=== PATIENT | female | born 1995 | race Caucasian/White ===

== ENCOUNTER 2018-05-16 11:05 | Emergency (ER) | payer OTHER ==
[~2018-05-16] VITALS: Ht 160 cm; Wt 95.2 kg
[~2018-05-16 11:05] MED LIST: AMOXICILLIN875 MG PO; HYDROCODON-ACE1 EA10 PO; NORCO 5-325 TA1 EACH PO
== END 2018-05-16 12:30 | disposition left against medical advice (07) ==
LOC: ED 11:05
DX: Z53.21 Procedure and treatment not carried out due to patient leaving prior to being seen by health care provider (principal)

== ENCOUNTER 2018-09-26 21:42 | Emergency (ER) | payer OTHER ==
[~2018-09-26] VITALS: Ht 160 cm; Wt 102.7 kg
[2018-09-26] MEDS ORDERED: [UNRECOGNIZED DRUG - REMARK] (21:57)
[2018-09-26] MEDS ORDERED: CEPHALEXIN500 MG PO (22:04)
[2018-09-26] MEDS ORDERED: BACTRIM DS TAB1 EACH PO (22:04)
== END 2018-09-26 22:15 | disposition home or self-care (01) ==
LOC: ED 21:42
DX: L03.115 Cellulitis of right lower limb (principal)
CPT/HCPCS: 99283

== ENCOUNTER 2018-09-30 05:36 | Emergency (ER) | payer OTHER ==
[~2018-09-30] VITALS: Ht 160 cm; Wt 102.7 kg
[~2018-09-30 05:36] MED LIST changes: +BACTRIM DS TAB1 EACH PO; +CEPHALEXIN500 MG PO; +[UNRECOGNIZED DRUG - REMARK]
--- OUTSIDE RECORDS SUMMARY | 2018-09-30 05:40 | XMS ---
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 05/16/2018 11:05 - Other Details: PATIENT LWBS- IRIS CREATED CRITERIA MET - [facility] - 2 Visits in 30 Days CARE PROVIDERS There are no care providers on record at this time. Amena has no Care Guidelines for this patient. E.DDomenic VISIT COUNT (12 MO.) 3 [facility] TOTAL 3 NOTE: Visits indicate total known visits. ED/C VISIT TRACKING (12 MO.) 09/30/2018 05:37 [facility] [place] TYPE: Emergency COMPLAINT: - BUG BITE 09/26/2018 21:42 [facility] [place] TYPE: Emergency COMPLAINT: - SPIDER BITE DIAGNOSES: - Cellulitis of right lower limb 05/16/2018 11:05 [facility] [place] TYPE: Emergency COMPLAINT: - R EAR BLEEDING DIAGNOSES: - Procedure and treatment not carried out due to patient leaving prior to being seen by health care provider INPATIENT VISIT TRACKING (12 MO.) No inpatient visits to display in this time frame [id number]
[2018-09-30] MEDS ORDERED: DOXYCYCLINE HY100 MG PO (06:04)
== END 2018-09-30 06:11 | disposition home or self-care (01) ==
LOC: ED 05:36
DX: L03.115 Cellulitis of right lower limb (principal); F17.200 Nicotine dependence, unspecified, uncomplicated
CPT/HCPCS: 99283

== ENCOUNTER 2019-01-28 17:18 | Emergency (ER) | payer OTHER ==
[~2019-01-28] VITALS: Ht 160 cm; Wt 102.2 kg
--- OUTSIDE RECORDS SUMMARY | ~2019-01-28 | XMS | Encounter Summary ---
Demographics + + + | Address | [address] | | | [place] [address] | + + + | Home Phone | | + + + | Preferred Language | Unknown | + + + | Marital Status | Single | + + + | Lutheran Affiliation | PAG | + + + | Race | White | + + + | Ethnic Group | Not or | + + + Author + + + | Author | [facility] | + + + | Organization | [facility] | + + + | Address | Unknown | + + + | Phone | Unavailable | + + + Support + + +---------+ + | Name | Relationship | Address | Phone | + + +---------+ + | Yumiko Peralta | ECON | Unknown | | + + +---------+ + Care Team Providers + +------+ + | Care Pot Puncher Name | Role | Phone | + +------+ + | Delilah Lange NP | PCP | | + +------+ + Encounter Details +--------+ + + + + | Date | Type | Department | Care Team | Description | +--------+ + + + + | 12/12/ | Documentati | Otolaryngology | Malik Daigle MD | | | 2019 | on | Otology Services at | [address] | | | | | PPV [address] | [place], | | | | | [address] | [place] [address] | | | | | Mailcode: PV01 | [phone] | | | | | [facility] | | | | | | [place], [place] | | | | | | [address] | | | | | | [phone] | | | +--------+ + + + + Social History + +-------+ +--------+------+ | Tobacco Use | Types | Packs/Day | Years | Date | | | | | Used | | + +-------+ +--------+------+ | Never Assessed | | | | | + +-------+ +--------+------+ + + + | Sex Assigned at | Date Recorded | | | | + + + | Not on file | | + + + + + + + | Job Start Date | Occupation | Industry | + + + + | Not on file | Not on file | Not on file | + + + + + + + + | Travel History | Travel Start | Travel End | + + + + + + | No recent travel history available. | + + documented as of this encounter Plan of Treatment +--------+---------+ + + + | Date | Type | Specialty | Care Team | Description | +--------+---------+ + + + | 02/20/ | Office | Otolaryngology | Malik Daigle MD | | | 2019 | Visit | | [address] | | | | | | [place], | | | | | | [place] [address] | | | | | | [phone] | | | | | | | | +--------+---------+ + + + documented as of this encounter Visit Diagnoses Not on filedocumented in this encounter"
--- OUTSIDE RECORDS SUMMARY | ~2019-01-28 | XMS | Encounter Summary ---
Demographics + + + | Address | [address] | | | [place] [address] | + + + | Home Phone | | + + + | Preferred Language | Unknown | + + + | Marital Status | Single | + + + | Protestant Affiliation | PAG | + + + | Race | White | + + + | Ethnic Group | Not or | + + + Author + + + | Author | [facility] | + + + | Organization | [facility] | + + + | Address | Unknown | + + + | Phone | Unavailable | + + + Support + + +---------+ + | Name | Relationship | Address | Phone | + + +---------+ + | Yumiko Peralta | ECON | Unknown | | + + +---------+ + Care Team Providers + +------+ + | Care Honest John Rocket Crew Member Name | Role | Phone | + +------+ + | Delilah Lange NP | PCP | | + +------+ + Reason for Visit + + + | Reason | Comments | + + + | Refill Request | | + + + Encounter Details +--------+--------+ + + + | Date | Type | Department | Care Team | Description | +--------+--------+ + + + | 01/24/ | Refill | Otolaryngology | Cheryl Rivera, | Refill Request | | 2019 | | General Services at | MD [address] | | | | | PPV [address] | [address] | | | | | [facility] [address] | [place], [place] | | | | | Mailcode: PV01 | [address] | | | | | [facility] | [phone] | | | | | [place], [place] | | | | | | [address] | | | | | | [phone] | | | +--------+--------+ + + + Social History + + + +--------+------+ | Tobacco Use | Types | Packs/Day | Years | Date | | | | | Used | | + + + +--------+------+ | Current Every Day | Cigarettes | 0.5 | 5 | | | Smoker | | | | | + + + +--------+------+ + +---+---+---+ | Smokeless Tobacco: | | | | | Never Used | | | | + +---+---+---+ + + +---------+ + | Alcohol Use | Drinks/Week | oz/Week | Comments | + + +---------+ + | Not Currently | 2 Cans of beer | 2.0 | 1-2 a month | + + +---------+ + + + + | Sex Assigned at [...] | | | | | [place], | | | | | | [place] [address] | | | | | | [phone] | | | | | | | | +--------+---------+ + + + documented as of this encounter Visit Diagnoses Not on filedocumented in this encounter"
--- OUTSIDE RECORDS SUMMARY | ~2019-01-28 | XMS | Encounter Summary ---
Demographics + + + | Address | [address] | | | [place] [address] | + + + | Home Phone | | + + + | Preferred Language | Unknown | + + + | Marital Status | Single | + + + | Islam Affiliation | PAG | + + + | Race | White | + + + | Ethnic Group | Not or | + + + Author + + + | Author | [facility] | + + + | Organization | [facility] | + + + | Address | Unknown | + + + | Phone | Unavailable | + + + Support + + +---------+ + | Name | Relationship | Address | Phone | + + +---------+ + | Yumiko Peralta | ECON | Unknown | | + + +---------+ + Care Team Providers + +------+ + | Care Design Drafter Name | Role | Phone | + +------+ + | Delilah Lange NP | PCP | | + +------+ + Reason for Visit + + + | Reason | Comments | + + + | Pain | | + + + | Prescription | | + + + Encounter Details +--------+ + + + + | Date | Type | Department | Care Team | Description | +--------+ + + + + | 01/24/ | Telephone | Otolaryngology | Malik Daigle MD | Pain; Prescription | | 2019 | | Otology Services at | [address] | | | | | [facility] [address] [facility] | [place], | | | | | [facility] | [place] [address] | | | | | Mailcode: PV01 | [phone] | | | | | [facility] | | | | | | [place], [place] | | | | | | [address] | | | | | | [phone] | | | +--------+ + + + + Social History + + [...] | | | | | [place], | | | | | | [place] [address] | | | | | | [phone] | | | | | | | | +--------+---------+ + + + documented as of this encounter Visit Diagnoses Not on filedocumented in this encounter"
--- OUTSIDE RECORDS SUMMARY | ~2019-01-28 | XMS | Encounter Summary ---
Demographics + + + | Address | [address] | | | [place] [address] | + + + | Home Phone | | + + + | Preferred Language | Unknown | + + + | Marital Status | Single | + + + | Buddhist Affiliation | PAG | + + + | Race | White | + + + | Ethnic Group | Not or | + + + Author + + + | Author | [facility] | + + + | Organization | [facility] | + + + | Address | Unknown | + + + | Phone | Unavailable | + + + Support + + +---------+ + | Name | Relationship | Address | Phone | + + +---------+ + | Yumiko Peralta | ECON | Unknown | | + + +---------+ + Care Team Providers + +------+ + | Care Loan Servicing Specialist Name | Role | Phone | + +------+ + | Delilah Lange NP | PCP | | + +------+ + Reason for Visit + + + | Reason | Comments | + + + | Pre-op evaluation | | + + + Encounter Details +--------+ + + + + | Date | Type | Department | Care Team | Description | +--------+ + + + + | 01/15/ | Telephone-S | Preoperative | | Pre-op evaluation | | 2019 | margie | [facility] | | | | | | [facility] | | | | | | [address] | | | | | | Mail Code: OC8PM | | | | | | [facility] | | | | | | and Healing, | | | | | | [address] | | | | | | [place], [place] | | | | | | [address] | | | | | | [phone] | | | +--------+ + + + + Anesthesia Record + + + + + | Procedure Name | Responsible | Anesthesia Start | Anesthesia Stop Time | | | Anesthesiologist | Time | | + + + + + | LEFT EAR CARTILAGE | Solomon Walker MD | 01/22/19 8415 | 01/22/19 2456 | | GRAFT, | | | | | TYMPANOPLASTY, | | | | | MASTOID ANTROTOMY | | | | | WITH OSSICULAR CHAIN | | | | | RECONSTRUCTION, | | | | | NERVE MONITORING. | | | | | (Left Ear) | | | | + + + + + +----+---+ + + | Da | T | Event | Comment | | te | i | | | | | m | | | | | e | | | +----+---+ + + | 10 | 1 | | | | /2 | 3 | | | | 2/ | 5 | | | | 20 | 1 | | | | 19 | | | | +----+---+ + + | | 1 | Pt. Check | Prior to anesthesia start, pt. Identified, examined, chart | | | 3 | | reviewed, PARQ held, anesthetic plan made or approved by | | | 5 | | attending anesthesiologist. NPO status confirmed as appropriate | | | 1 | | for procedure Preoperative evaluation: unchanged | +----+---+ + + | | 1 | Eq Check | Anesthesia machine checked Equipment verified | | | 3 | | | | | 5 | | | | | 5 | | | +----+---+ + + | | 1 | An Start | | | | 4 | | | | | 0 | | | | | 5 | | | +----+---+ + + | | 1 | Eq Check | Anesthesia machine checked Equipment verified | | | 4 | | | | | 1 | | | | | 0 | | | +----+---+ + + | | 1 | An Start | | | | 4 | Data | | | | 1 | | | | | 0 | | | +----+---+ + + | | 1 | Vitals | Monitors applied Vital signs checked Patient ready for anesthesia | | | 4 | Checked | | | | 1 | | | | | 1 | | | +----+---+ + + | | 1 | ETT | | | | 4 | | | | | 1 | | | | | 7 | | | +----+---+ + + | | 1 | Ready | | | | 4 | | | | | 2 | | | | | 0 | | | +----+---+ + + | | 1 | Abx | | | | 4 | Administere | | | | 2 | d | | | | 5 | | | +----+---+ + + | | 1 | Local | | | | 4 | Anesthetic | | | | 3 | by Surgeon | | | | 1 | | | +----+---+ + + | | 1 | Timeout | | | | 4 | | | | | 4 | | | | | 0 | | | +----+---+ + + | | 1 | Incision | | | | 4 | | | | | 4 | | | | | 1 | | | +----+---+ + + | | 1 | Intraop and | - Patient/Allergies/Procedure - Relevant PMH - Relevant data | | | 6 | Med | (labs/imaging) - Anesthetic (airway, infusions, drug redoses) - | | | 3 | Handoff | Lines/Drains - I/O - Current Phase and significant events - | | | 9 | | Emergence/dispo plans, post-op concerns | +----+---+ + + | | 1 | Surgery end | | | | 7 | | | | | 4 | | | | | 2 | | | +----+---+ + + | | 1 | An Extubate | Neuromuscular function Intact. Pharynx suctioned. Patient obeys | | | 7 | | commands. Adequate pulmonary mechanics. | | | 4 | | | | | 2 | | | +----+---+ + + | | 1 | an stop | | | | 7 | data | | | | 4 | | | | | 4 | | | +----+---+ + + | | 1 | PACU Rpt | | | | 7 | Given | | | | 5 | | | | | 1 | | | +----+---+ + + | | 1 | Anesthesia | | | | 7 | End | | | | 5 | | | | | 1 | | | +----+---+ + + | | 2 | Post-Op | | | | 0 | Page | | | | 0 | | | | | 0 | | | +----+---+ + + +------+ | Meds | +------+ + + + No medications | on file. | + + + + + | No agents on file. | + + + + | No blood administrations on file. | + + +--------+ + + + | Type | Details | Placement | Removal | +--------+ + + + | Periph | 01/22/19; 1305; Left; Dorsal; | 01/22/19 1305 by Porfirio | 01/22/192033 by | | eral | Hand; 20 g; Lidocaine; No; | ADELA Shipley | Eugenie Nathan RN | | IV | Positive; 01/22/19; 2033 | | | +--------+ + + + | ETT | 01/22/19; 141 (created via | 01/22/191417 by | 01/22/191741 by | | | procedure documentation); 7; | Omid Kendall, | Matt Humphreys, ROBERTH | | | Oral; Cuffed; 01/22/19; 674 | PACKAGING SUPERVISOR | | +--------+ + + + | Incisi | 01/22/19; 1506; Left; ear (post | 01/22/191506 by | 01/22/192033 by | | on | auricular); 01/22/19; 2033 | Alaina Fisher, | Eugenie Nathan RN | | | | RN | | +--------+ + + + documented in this encounter Social History + + + +--------+------+ | [...] + +---------+ + | Not Currently | | | 1-2 a month | + + [...] + + documented as of this encounter Patient Instructions Patient Instructions Deann Mata RN - 01/15/2019 12:28 PM PDT PREOPERATIVE INSTRUCTIONS Pre-surgery "homework" If you have not already done so, please consider getting your flu vaccine before surgery . This is safe and effective before a surgery and recovery. Unless otherwise instructed by your surgeon, stay active between now and surgery, even s triving to increase your activity levels if you can (ex. taking at least one walk daily, lissette n around the block). This can help speed your surgery recovery. Surgery check-in location: [address] and [facility] 2, 1st Floor [facility] Surgery Check in Time: you will receive a call 1-3 business days before your surgery confi rming your exact arrival/check-in time for your surgery day. We know that planning for surg ashley can be stressful and involve a lot of family/friend/transportation coordination as well as hotel arrangements. The [facility] does not have access to check in [facility], and we encourage you to contact your surgeon's office for any assistance planning aroun d a tentative arrival time. Empty stomach before surgery On the day BEFORE your surgery, drink plenty of fluids and stay well hydrated NOTHING to eat or drink after midnight the night before surgery. This includes water, coffee, candy, mints, gum. Medications Instructions On the evening before your surgery, take ALL your usual evening medications On the morning of surgery TAKE the following medications with a sip of water: None On the morning of surgery DO NOT TAKE the following medications: TYLENOL ORAL Other medications not specifically mentioned are at your discretion as to taking or not taking on the morning of surgery. Unless otherwise directed by your surgeon, do not take any Aspirin, fish oil supplements , vitamin E or non-steroidal anti-inflammatory (NSAIDs i.e. Advil, Aleve, Ibuprofen) or herb al supplements 7 days prior to your surgery. These drugs may interfere with normal blood kiran tting and may cause excessive bleeding and bruising during or after the surgery. If you need a pain medication for general purposes, use Tylenol as directed. OK to take it even on the morning of surgery, if needed. If you are in doubt about any medications that you are taking, please contact our office . Skin preparation to help avoid surgical site infections HIBICLENS GUIDE TO GENERAL SKIN CLEANSING AT HOME BEFORE SURGERY Before you bathe or shower: ? Read the instructions given to you by your healthcare practitioner, and begin your genera l skin cleansing protocol as directed. ? Carefully read all directions on the product label. ? Hibiclens is not to be used on the head or face, keep out of the eyes, ears and mouth. ? Hibiclens is not to be used in the genital area. ? Hibiclens should not be used if you are allergic to chlorhexidine gluconate or any other ingredients in this preparation. *See Hibiclens label for full product information and precautions. When you bathe or shower the night before your surgery: ? If you plan to wash your hair, do so with your regular shampoo. Then rinse hair and body thoroughly to remove any shampoo residue. ? Wash your face with your regular soap or water only. ? Thoroughly rinse your body with warm water from neck down. ? Use Hibiclens as you would any other liquid soap. Please do not put the Hibiclens on a wa sh cloth, apply directly to the skin and wash gently. Apply the minimum amount of Hibiclens necessary to cover the skin. Leave the Hibiclens on your skin for 1 minute, then rinse off. ? Rinse thoroughly with warm water. ? Do not use your regular soap after applying and rinsing Hibiclens. When using Hibiclens for a second day in a row (morning of surgery, as soon as you wake up) : ? Shower/bathe again using Hibiclens in the same method as described above. ? Do not apply any lotions, deodorants, powders or perfumes to the body areas that have been cleaned with Hibiclens. Other Important Guidelines ? Do not shave the surgical area Do not wear tampons on the day of the procedure Do not smoke, drink alcohol or use recreational drugs for 24 hours before your surgery Watch for any change in your health condition. Let your surgeon know right away if you do not feel well. ? Do not wear makeup, perfume, lotions, deodorant, powder or hairspray. Do not wear any jewelry to the hospital. Wear loose, comfortable clothing. Leave all your valuables at home. Allow enough travel time so you re not late for your check in for surgery. Take a bath or shower and remember to shampoo your hair using your usual hair product be fore your arrival at the hospital. Please remember to brush your teeth the night before and the morning of your procedure. Preventing post op complications while you are in the hospital Use an incentive spirometer or peep breathe to keep your lungs working properly an d to help prevent respiratory complications. It helps you take long, deep breaths. Use it at least once every hour while you are awake. Leg and feet exercises will maintain good circulation and help prevent blood clots in yo ur legs. Sometimes your doctor will order sequential air compression stockings. Compressed air helps the circulation in your legs. Walking and moving will help stimulate normal circulation and deep breathing. After you r surgery, your nurse may ask you to sit, stand or walk. Going Home Your surgical team will decide when you are medically ready to go home. If you are released to go home on the same day as your procedure/surgery please note the following: You will not be able to drive yourself A responsible adult MUST escort you home. You may not drive yourself Your responsible adult can drive you or they can accompany you in a taxi, ride share (paul ch as Uber/Lyft), or public transportation. An Uber/Lyft/taxicab driver does not count as the responsible adult who accompanies you. Certified Medical Transport can transport you after surgery as long as a competent adult is waiting for you on arrival at your destination Although not mandatory, it is highly recommended that a patient has a responsible person with you to provide overnight monitoring/support following discharge. It IS required that you have a competent person assist you and look after you on the fir st night after you have undergone regional blocks (72 hours for patients going home with reg ional block pump) If you stayed in the hospital after surgery, please discuss anticipated discharge time a nd plans with your inpatient team so that transportation plans and other going home arrangem ents can be coordinated If you have questions or concerns after you go home, call your doctor s office. If it is after office hours, call the [facility] electric hoist operator at [phone] and ask them to page him or h er. documented in this encounter Plan of Treatment +--------+---------+ + + + | Date | Type | Specialty | Care Team | Description | +--------+---------+ + + + | 02/20/ | Office | Otolaryngology | Malik Daigle MD | | | 2019 | Visit | | [address] | | | | | | [place], | | | | | | [place] [address] | | | | | | [phone] | | | | | | | | +--------+---------+ + + + documented as of this encounter Visit Diagnoses Not on filedocumented in this encounter
--- OUTSIDE RECORDS SUMMARY | ~2019-01-28 | XMS | Encounter Summary ---
Demographics + + + | Address | [address] | | | [place] [address] | + + + | Home Phone | | + + + | Preferred Language | Unknown | + + + | Marital Status | Single | + + + | Adventist Affiliation | PAG | + + + | Race | White | + + + | Ethnic Group | Not or | + + + Author + + + | Author | [facility] | + + + | Organization | [facility] | + + + | Address | Unknown | + + + | Phone | Unavailable | + + + Support + + +---------+ + | Name | Relationship | Address | Phone | + + +---------+ + | Yumiko Peralta | ECON | Unknown | | + + +---------+ + Care Team Providers + +------+ + | Care Hot Die Press Operator Name | Role | Phone | + +------+ + | Delilah Lange NP | PCP | | + +------+ + Encounter Details +--------+ + + + + | Date | Type | Department | Care Team | Description | +--------+ + + + + | 01/22/ | Procedure | [facility] | | | | 2019 | Pass | [facility] | | | | | | and He[facility] Surgery | | | | | | Center Admitting | | | | | | Desk Located on the | | | | | | 4th floor [address] | | | | | | [place], | | | | | | [place] [address] | | | +--------+ + + + [...] | | | | | [place], | | | | | | [place] [address] | | | | | | [phone] | | | | | | | | +--------+---------+ + + + documented as of this encounter Visit Diagnoses Not on filedocumented in this encounter"
--- OUTSIDE RECORDS SUMMARY | ~2019-01-28 | XMS | Encounter Summary ---
Demographics + + + | Address | [address] | | | [place] [address] | + + + | Home Phone | | + + + | Preferred Language | Unknown | + + + | Marital Status | Single | + + + | Latter-Day Affiliation | PAG | + + + | Race | White | + + + | Ethnic Group | Not or | + + + Author + + + | Author | [facility] | + + + | Organization | [facility] | + + + | Address | Unknown | + + + | Phone | Unavailable | + + + Support + + +---------+ + | Name | Relationship | Address | Phone | + + +---------+ + | Yumiko Peralta | ECON | Unknown | | + + +---------+ + Care Team Providers + +------+ + | Care Medical Claims Examiner Name | Role | Phone | + +------+ + | Delilah Lange NP | PCP | | + +------+ + Encounter Details +--------+ + + + + | Date | Type | Department | Care Team | Description | +--------+ + + + + | 01/24/ | Pharmacy | [facility] | | | | 2019 | Visit | & [facility] | | | | | | [address] | | | | | | Mailcode: [place] | | | | | | [facility] | | | | | | Healing, [address] | | | | | | [place], [place] | | | | | | [address] | | | | | | [phone] | | | +--------+ + + + [...] | Malik Daigle MD | | | 2018 | Visit | | [address] | | | | | | [place], | | | | | | [place] [address] | | | | | | [phone] | | | | | | | | +--------+---------+ + + + documented as of this encounter Visit Diagnoses Not on filedocumented in this encounter"
--- OUTSIDE RECORDS SUMMARY | ~2019-01-28 | XMS | Encounter Summary ---
Demographics + + + | Address | [address] | | | [place] [address] | + + + | Home Phone | | + + + | Preferred Language | Unknown | + + + | Marital Status | Single | + + + | Confucianism Affiliation | PAG | + + + | Race | White | + + + | Ethnic Group | Not or | + + + Author + + + | Organization | Unknown | + + + | Address | Unknown | + + + | Phone | Unavailable | + + + Support + + +---------+ + | Name | Relationship | Address | Phone | + + +---------+ + | Yumiko Peralta | ECON | Unknown | | + + +---------+ + Care Team Providers + +------+ + | Care Lead Press Operator Name | Role | Phone | + +------+ + | Delilah Lange NP | PCP | | + +------+ + Encounter Details +--------+--------+ + + + | Date | Type | Department | Care Team | Description | +--------+--------+ + + + | 01/15/ | Travel | | | | | 2019 | | | | | +--------+--------+ + + + [...] | | | | | [place], | | | | | | [place] [address] | | | | | | [phone] | | | | | | | | +--------+---------+ + + + documented as of this encounter Visit Diagnoses Not on filedocumented in this encounter"
--- OUTSIDE RECORDS SUMMARY | ~2019-01-28 | XMS | Encounter Summary ---
Demographics + + + | Address | [address] | | | [place] [address] | + + + | Home Phone | | + + + | Preferred Language | Unknown | + + + | Marital Status | Single | + + + | Yazdanism Affiliation | PAG | + + + | Race | White | + + + | Ethnic Group | Not or | + + + Author + + + | Author | [facility] | + + + | Organization | [facility] | + + + | Address | Unknown | + + + | Phone | Unavailable | + + + Support + + +---------+ + | Name | Relationship | Address | Phone | + + +---------+ + | Yumiko Peralta | ECON | Unknown | | + + +---------+ + Care Team Providers + +------+ + | Care Candy Cooker Helper Name | Role | Phone | + +------+ + | Delilah Lange NP | PCP | | + +------+ + Reason for Visit AUTH/CERT +--------+--------+ + + + + | Status | Reason | Specialty | Diagnoses / | Referred By | Referred To | | | | | Procedures | Contact | Contact | +--------+--------+ + + + + | | | | | | | +--------+--------+ + + + + Encounter Details +--------+---------+ + + + | Date | Type | Department | Care Team | Description | +--------+---------+ + + + | 01/22/ | Surgery | [facility] | Malik Daigle MD | LEFT EAR CARTILAGE | | 2019 | [facility] | [address] | GRAFT, | | | | and Healing Surgery | [place], | TYMPANOPLASTY, | | | | Center Admitting | [place] [address] | MASTOID ANTROTOMY | | | | Desk Located on the | [phone] | WITH OSSICULAR CHAIN | | | | 4th floor [address] | | RECONSTRUCTION, | | | | [place], | | [place]. | | | | [place] [address] | | | +--------+---------+ + + + Social History + + [...] + + documented as of this encounter Last Filed Vital Signs + + + + + | Vital Sign | Reading | Time Taken | Comments | + + + + + | Blood Pressure | 140/81 | 01/22/2019 8:30 PM | | | | | PDT | | + + + + + | Pulse | 91 | 01/22/2019 7:30 PM | | | | | PDT | | + + + + + | Temperature | 36.7 C (98.1 F) | 01/22/2019 8:00 PM | | | | | PDT | | + + + + + | Respiratory Rate | 12 | 01/22/2019 8:30 PM | | | | | PDT | | + + + + + | Oxygen Saturation | 99% | 01/22/2019 8:30 PM | | | | | PDT | | + + + + + | Inhaled Oxygen | - | - | | | Concentration | | | | + + + + + | Weight | 104.3 kg (230 lb) | 01/22/2019 12:30 PM | | | | | PDT | | + + + + + | Height | 160 cm (5' 3") | 01/22/2019 12:30 PM | | | | | PDT | | + + + + + | Body Mass Index | 40.74 | 01/22/2019 12:30 PM | | | | | PDT | | + + + + + documented in this encounter Discharge Instructions Discharge Instr - Day Procedure Instructions Cheryl Rivera MD - 01/22/2019 1:42 PM PDT POST-OP INSTRUCTIONS AFTER TYMPANOPLASTY: Start the ear drops immediately following surgery -- 2 drops in the left ear twice daily. Y ou have packing in your ear canal; please do not remove this. Wound care: Please remove your dressing tomorrow morning. It is designed to put pressure o n your surgical site to reduce swelling and the possibility of a hematoma (collection of blo od). Your incision is closed with absorbable sutures. Please use the antibiotic ointment as prescribed twice daily for 1 week. Please keep the incision dry for 2 days. If you have any swelling (like a water balloon) you should notify us as it may indicate a h ematoma. Please call us also if you have increasing pain or tenderness in the surgical area . If the wound becomes reddened or there is discharge please let us know immediately. You may feel more comfortable if you sleep with your head elevated. Water precautions: Please keep water out of your ear until the post-operative visit. Use a cottonball with Vaseline when showering. Please change the cottonball as needed. Pain medication: Take Tylenol or Ibuprofen as needed for pain. If pain is severe during e first week, can use Oxycodone tablets as prescribed. If pain appears to be particularly se dieudonne after the first week, please contact the clinic. Do not drink alcohol or drive while ta elvia pain medications. PLEASE DO NOT TAKE MORE THAN 4000mg OF TYLENOL (acetaminophen) PER DA Y. Activity restrictions: No strenuous activity or lifting anything heavier than 10 pounds (a bout a gallon of milk). Do not blow your nose. Sneeze with your mouth open (do not stifle a sneeze). Diet: Resume usual diet. Follow up care: As scheduled, or call our office to confirm your appointment. You may call our office at [phone] (daytimes) or [phone] (after hours; urgent jenny ls only) with questions. Please call for difficulty breathing or unusual shortness of breath , excessive bleeding, swelling at operative site, drainage at the operative site, fevers, ch ills, increased pain that is not relieved by pain medications, or persistent nausea or vomit ing. It is best to call during office hours if possible for the quickest assistance. After hours, please ask to speak to the Otolaryngology - Head and Neck Surgery (ENT) resident regional sales director. Malik Daigle MD [employer], Division of Otology, Neurotology, and Skull Base Surgery [email or web address] Additional Instructions Eugenie Nathan RN - 01/22/2019General Discharge Instructions for Sa -Day Procedure Patients: ? Remember that you are under the influence of medications. Do not stay alone. A responsible person should be with you. Do not drive, drink alcohol or make important personal or business decisions for 24 hour s. ? Resume normal activity and return to work when advised by your Doctor. Pain Management: Your last oral pain medication was given at: Tylenol 650mg PO given at 6:51 PM and Oxycodon e 5mg given at 6:53PM ? Please follow your Doctor s instructions on the medication bottle. ? Do not take pain medication on an empty stomach, as this may cause nausea and vomiting. ? Do not drive or drink alcohol while on narcotic pain medication. ? If pain is not relieved or increases despite following these instructions, please call yo ur Doctor. Diet: ? If you do not experience nausea or vomiting resume your regular diet. Eat lightly and av oid large, high fat or highly spiced meals for 24-48 hours. ? Constipation can be a side effect of narcotic pain medication. Take stool softeners, inc rease dietary fiber and drink plenty of water to prevent this. Wound/Dressing/Drain Care: ? Call your Doctor if there is excessive bleeding, redness, swelling or drainage at the ope rative site. Urination: ? Please contact your Doctor or proceed to the nearest Emergency Room if you have not urina jean/voided in 8 hours after discharge. IV Site Care Instructions: ? Monitor IV site for pain, redness, swelling and/or drainage. If present, call your Docto r immediately. ? Minor redness and/or tenderness may be treated with warm, moist compresses for 24-48 hour s. If the area is still red and/or tender after this, notify your Doctor. Call your Doctor if you experience: ? Persistent nausea or vomiting. ? Fever ?101F or chills. ? Increased or uncontrolled pain despite taking pain medications. Prevention of DVT (deep vein thrombosis) 1. Get up and move 2. Do ankle exercises Signs and symptoms of DVT 1. Redness, Swelling, warmth and tenderness in calf. 2. Sharp pain in calf when you point your toes towards you body. Call 911 if you experience difficulty breathing or unusual shortness of breath. Additional Home Care Instructions: After arriving home you may receive a patient satisfacti on survey from "Suk[facility] [employer]". We would appreciate your feedback on the survey to help us pr ovide excellent service to you and your family. documented in this encounter Medications at Time of Discharge + + + +---------+ + + | Medication | Sig | Dispensed | Refills | Start | End Date | | | | | | Date | | + + + +---------+ + + | acetaminophen | Take 325-650 mg by | | 0 | | | | (TYLENOL ORAL) | mouth as needed. | | | | | + + + +---------+ + + | ofloxacin 0.3 % | Instill 5 drops into | 5 mL | 0 | 01/23/20 | | | ophthalmic (eye) | the left ear two | | | 19 | | | drops | times daily. Start | | | | | | | one week prior to | | | | | | | your follow up | | | | | | | appointment. | | | | | + + + +---------+ + + documented as of this encounter Plan of Treatment +--------+---------+ + + + | Date | Type | Specialty | Care Team | Description | +--------+---------+ + + + | 02/20/ | Office | Otolaryngology | Malik Daigle MD | | | 2019 | Visit | | [address] | | | | | | [place], | | | | | | [place] [address] | | | | | | [phone] | | | | | | | | +--------+---------+ + + + + +---------+--------+ + + | Name | Type | Priori | Associated Diagnoses | Order Schedule | | | | ty | | | + +---------+--------+ + + | INTRAPROCEDURE | Imaging | Routin | | One Time for 1 | | IMAGING | | e | | Occurrences starting | | | | | | 01/22/2019 until | | | | | | 01/22/2019, 1 | | | | | | completed | + +---------+--------+ + + documented as of this encounter Procedures + +--------+ + + + | Procedure Name | Priori | Date/Time | Associated Diagnosis | Comments | | | ty | | | | + +--------+ + + + | PROCEDURE NOTE | Routin | 01/22/2019 | | Results for this | | | e | 8:45 PM | | procedure are in the | | | | PDT | | results section. 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 | + +--------+ + + + | CARDIOLOGY | | 01/22/2019 | | Results for this | | | | 12:00 AM | | procedure are in the | | | | PDT | | results section. | + +--------+ + + + documented in this encounter Results PROCEDURE NOTE (01/22/2019 8:45 PM PDT)INTRAPROCEDURE IMAGING (01/22/2019 12:31 PM PDT) + + | Specimen | + + | | + + + + + | Narrative | Performed At | + + + | See admission or procedure notes for details of any intraprocedure | [facility] | | images obtained. | RADIOLOGY | + + + + +---------+ + + | Performing | Address | City/State/Zipcode | Phone Number | | Organization | | | | + +---------+ + + | [facility] | | | | + +---------+ + + CARDIOLOGY (01/22/2019 12:00 AM PDT) + + + | Narrative | Performed At | + + + | | | + + + documented in this encounter Visit Diagnoses Not on filedocumented in this encounter Administered Medications + +--------+ +--------+------+------+ | Medication Order | MAR | Action | Dose | Rate | Site | | | Action | Date | | | | + +--------+ +--------+------+------+ | acetaminophen (TYLENOL) tablet | Given | 01/23/20 | 650 mg | | | | 650 mg 650 mg, oral, | | 19 6:51 | | | | | POSTPROCEDURE PRN, 1 dose, | | PM PDT | | | | | Starting Mon01/22/19 at 1449, | | | | | | | Until Mon01/22/19 at 1851, mild | | | | | | | or greater pain while in Phase 1 | | | | | | + +--------+ +--------+------+------+ +---+---+ | | | +---+---+ + +-------+ +------+---+ + | EPINEPHrine HCl (PF) (ADRENALIN | Given | 01/23/20 | 4 mg | | Surgical | | PF) injection INTRAPROCEDURE | | 19 3:39 | | | Site | | PRN, Starting Mon01/22/19 at | | PM PDT | | | | | 1539, Until Mon01/22/19 at 1744 | | | | | | + +-------+ +------+---+ + +---+---+ | | | +---+---+ + +-------+ +--------+---+---+ | fentaNYL (SUBLIMAZE) injection | Given | 01/23/20 | 25 mcg | | | | 25-50 mcg 25-50 mcg, | | 19 6:41 | | | | | intravenous, POSTPROCEDURE PRN, 8 | | PM PDT | | | | | doses, Starting Mon01/22/19 at | | | | | | | 1449, Until Mon01/23/19 at 0252, | | | | | | | severe pain while in Phase I | | | | | | | Recovery | | | | | | + +-------+ +--------+---+---+ +-------+ +--------+---+---+ | Given | 01/23/20 | 25 mcg | | | | | 19 6:14 | | | | | | PM PDT | | | | +-------+ +--------+---+---+ +---+---+ | | | +---+---+ + + + +---+---+---+ | lactated ringers IV 10 mL/hr, | given by | 01/23/20 | | | | | intravenous, PROCEDURE | | 19 5:51 | | | | | CONTINUOUS, Starting 01/22/19 | anesthes | PM PDT | | | | | at 1245, Until 01/23/19 at | iology | | | | | | 0252 | | | | | | + + + +---+---+---+ +---------+ +---+---+---+ | New Bag | 01/23/20 | | | | | | 19 5:00 | | | | | | PM PDT | | | | +---------+ +---+---+---+ | New Bag | 01/23/20 | | | | | | 19 2:05 | | | | | | PM PDT | | | | +---------+ +---+---+---+ + +---+ | | | + +---+ | lactated ringers IV 500 mL, | | | intravenous, POSTPROCEDURE PRN, 1 | | | dose, Starting 01/22/19 at | | | 1449, Until 01/23/19 at 0252, | | | nausea/vomiting due to | | | dehydration | | + +---+ | | | + +---+ | lactated ringers IV 500 mL, | | | intravenous, POSTPROCEDURE PRN, 1 | | | dose, Starting 01/22/19 at | | | 1450, Until Mon01/23/19 at 0252, | | | systolic blood pressure less | | | than 90 mmHg. 1st line | | + +---+ | | | + +---+ | lidocaine (XYLOCAINE) 10 mg/mL | | | (1 %) injection subcutaneous, | | | PREPROCEDURE PRN, Starting Tue | | | 01/22/19 at 1231, Until Wed | | | 01/23/19 at 0252, IV start | | + +---+ | | | + +---+ + +-------+ +--------+---+ + | lidocaine-EPINEPHrine | Given | 01/23/20 | 2.5 mL | | Surgical | | (XYLOCAINE WITH EPINEPHRINE) 1 | | 19 4:51 | | | Site | | %-1:100,000 injection | | PM PDT | | | | | INTRAPROCEDURE PRN, Starting Tue | | | | | | | 01/22/19 at 1455, Until Tue | | | | | | | 01/22/19 at 1744 | | | | | | + +-------+ +--------+---+ + +-------+ +--------+---+ + | Given | 01/23/20 | 1.5 mL | | Surgical | | | 19 2:55 | | | Site | | | PM PDT | | | | +-------+ +--------+---+ + +---+---+ | | | +---+---+ + +-------+ +---------+---+ + | mupirocin (BACTROBAN) 2 % | Given | 01/23/20 | 1 strip | | Surgical | | ointment INTRAPROCEDURE PRN, | | 19 3:40 | | | Site | | Starting Mon01/22/19 at 1540, | | PM PDT | | | | | Until Mon01/22/19 at 1744 | | | | | | + +-------+ +---------+---+ + + +---+ | | | + +---+ | naloxone (NARCAN) injection | | | intravenous, POSTPROCEDURE PRN, | | | Starting Mon01/22/19 at 1449, | | | Until Mon01/23/19 at 0252, | | | hypopnea | | + +---+ | | | + +---+ + +-------+ +------+---+ + | ofloxacin (FLOXIN) 0.3 % otic | Given | 01/23/20 | 5 mL | | Surgical | | drops INTRAPROCEDURE PRN, | | 19 5:22 | | | Site | | Starting Mon01/22/19 at 1722, | | PM PDT | | | | | Until Mon01/22/19 at 1744 | | | | | | + +-------+ +------+---+ + +---+---+ | | | +---+---+ + +-------+ +------+---+---+ | oxyCODONE (immediate release) | Given | 01/23/20 | 5 mg | | | | (ROXICODONE) tablet 5-10 mg 5- | | 19 6:53 | | | | | mg, oral, EVERY 4 HOURS | | PM PDT | | | | | NEEDED, Starting Mon01/22/19 at | | | | | | | 1409, Until Mon01/23/19 at 0252, | | | | | | | severe pain | | | | | | + +-------+ +------+---+---+ + +---+ | | | + +---+ | oxyCODONE (immediate release) | | | (ROXICODONE) tablet 5-10 mg 5-10 | | | mg, oral, POSTPROCEDURE PRN, 1 | | | dose, Starting 01/22/19 at | | | 1449, Until Mon01/23/19 at 0252, | | | moderate pain while in Phase 1 | | | recovery | | + +---+ | | | + +---+ | PHENYLEPHrine 100 mcg/mL IV | | | syringe 50 mcg, intravenous, | | | POSTPROCEDURE PRN, 4 doses, | | | Starting 01/22/19 at 1450, | | | Until Mon01/23/19 at 0252, | | | systolic blood pressure less than | | | 90 mmHg refractory to IV fluids. | | + +---+ | | | + +---+ | promethazine (PHENERGAN) | | | injection 6.25-12.5 mg 6.25-12.5 | | | mg, intravenous, POSTPROCEDURE | | | PRN, 1 dose, Starting Tue | | | 01/22/19 at 1449, Until Wed | | | 01/23/19 at 0252, | | | nausea/vomiting, 1st line | | + +---+ | | | + +---+ documented in this encounter
--- OUTSIDE RECORDS SUMMARY | ~2019-01-28 | XMS | Clinical Summary ---
Demographics + + + | Address | [address] | | | [place] [address] | + + + | Home Phone | | + + + | Preferred Language | Unknown | + + + | Marital Status | Single | + + + | Mandaeism Affiliation | PAG | + + + | Race | White | + + + | Ethnic Group | Not or | + + + Author + + + | Author | [facility] | + + + | Organization | [facility] | + + + | Address | Unknown | + + + | Phone | Unavailable | + + + Support + + +---------+ + | Name | Relationship | Address | Phone | + + +---------+ + | Yumiko Fernandezman | ECON | Unknown | | + + +---------+ + Care Team Providers + +------+ + | Care Livestock Counter Name | Role | Phone | + +------+ + | Delilah Lange EPIC SPECIALIST | PCP | | + +------+ + Source Comments [facility]I is fully live on both [facility] and [facility] Allergies No Known Allergies Medications + + + +---------+------+------+-------+ | Medication | Sig | Dispensed | Refills | Star | End | Statu | | | | | | t | Date | s | | | | | | Date | | | + + + +---------+------+------+-------+ | acetaminophen | Take 325-650 mg by | | 0 | | | Activ | | (TYLENOL ORAL) | mouth as needed. | | | | | e | + + + +---------+------+------+-------+ | ofloxacin 0.3 % | Instill 5 drops into | 5 mL | 0 | 10/2 | | Activ | | ophthalmic (eye) | the left ear two | | | 2/20 | | e | | drops | times daily. Start | | | 19 | | | | | one week prior to | | | | | | | | your follow up | | | | | | | | appointment. | | | | | | + + + +---------+------+------+-------+ | oxyCODONE | Take 0.5 to 1 tablet | 10 | 0 | 10/2 | | Activ | | (immediate release) | by mouth every six | tablet | | 4/20 | | e | | 5 mg oral tablet | hours as needed for | | | 19 | | | | | breakthrough pain. 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 | 12/14/2018 | + + + Encounters +--------+ + + + + | Date | Type | Specialty | Care Team | Description | +--------+ + + + + | 01/25/ | MyChart | Otolaryngology | Malik Daigle MD | RE: doctors note | | 2018 | Encounter | | | | +--------+ + + + + | 01/24/ | Telephone | Otolaryngology | Malik Daigle MD | | | 2018 | | | | | +--------+ + + + + | 01/24/ | Pharmacy | | | | | 2018 | Visit | | | | +--------+ + + + + | 01/24/ | MyChart | Otolaryngology | aMlik Daigle MD | RE: medicine | | 2018 | Encounter | | | | +--------+ + + + + | 01/24/ | Refill | Otolaryngology | Cheryl Rivera, | Refill Request | | 2018 | | | | | +--------+ + + + + | 01/24/ | Telephone | Otolaryngology | Malik Daigle MD | Pain; Prescription | | 2018 | | | | | +--------+ + + + + | 01/22/ | Anesthesia | Surgery | Solomon Walker MD | | | 2018 | Event | | Terrance Amelia, | | | | | | ADELA Zacarias | | +--------+ + + + + | 01/22/ | Surgery | Surgery | Malik Daigle MD | LEFT EAR CARTILAGE | | 2018 | | | | GRAFT, | | | | | | TYMPANOPLASTY, | | | | | | MASTOID ANTROTOMY | | | | | | WITH OSSICULAR CHAIN | | | | | | RECONSTRUCTION, | | | | | | NERVE MONITORING. | +--------+ + + + + | 01/22/ | Hospital | Surgery | Malik Daigle MD | | | 2018 | Encounter | | | | +--------+ + + + + | 01/22/ | Pharmacy | | | | | 2019 | Visit | | | | +--------+ + + + + | 01/22/ | Travel | | | | | 2018 | | | | | +--------+ + + + + | 01/22/ | Procedure | Surgery | | | | 2019 | Pass | | | | +--------+ + + + + | 01/20/ | MyChart | Otolaryngology | Malik Daigle MD | flu shot | | 2019 | Encounter | | | | +--------+ + + + + | 01/15/ | Telephone-S | Pre-operative | | Pre-op evaluation | | 2019 | cheduled | Medicine | | | +--------+ + + + + | 01/15/ | Travel | | | | | 2018 | | | | | +--------+ + + + + | 12/14/ | Office | Otolaryngology | Malik Daigle MD | Cholesteatoma of | | 2019 | Visit | | | left middle ear and | | | | | | mastoid (Primary | | | | | | Dx); Conductive | | | | | | hearing loss of left | | | | | | ear with restricted | | | | | | hearing of right | | | | | | ear | +--------+ + + + + | 12/14/ | Travel | | | | | 2018 | | | | | +--------+ + + + + | 12/14/ | Documentati | Otolaryngology | Malik Daigle MD | | | 2019 | on | | | | +--------+ + + + + | 12/12/ | Documentati | Otolaryngology | Malik Daigle MD | | | 2019 | on | | | | +--------+ + + + + from Last 3 Months Social History + + + +--------+------+ | [...] recent travel history available. | + + Last Filed Vital Signs + + + [...] | | + + + + + Plan of Treatment +--------+---------+ + + + | Date | Type | Specialty | Care Team | Description | +--------+---------+ + + + | 02/20/ | Office | Otolaryngology | Malik Daigle MD | | | 2019 | Visit | | [address] | | | | | | [place] [facility], | | | | | | [place] [address] | | | | | | [phone] | | | | | | | | +--------+---------+ + + + + + + + + | Health Maintenance | Due Date | Last Done | Comments | + + + + + | Pneumococcal | | | | | vaccination (1 of 1 | 3 | | | | - PPSV23) | | | | + + + + + | Influenza (Flu) | | 12/30/2013, 05/12/2006 | | | vaccination (#1) | 9 | | | + + + + + Implants + +------+--------+ +--------+--------+--------+ | Implanted | Type | Area | Manufacture | Device | Shelf | Model | | | | | r | | Expira | / | | | | | | Identi | tion | Serial | | | | | | fier | Date | / Lot | + +------+--------+ +--------+--------+--------+ | Graft Soft Tissue 7x4cm | | Left: | COOK | | 09/05/ | [id number] | | Surgisis Porcine Acellular | | Ear | MEDICAL | | 2019 | / | | Collagen Matrix - | | | | | | /[id number] | | [id number]: Qty: 1 on | | | | | | 0529 | | 01/22/2019 by Malik Daigle, | | | | | | | | MD at [facility] REV LOC | | | | | | | + +------+--------+ +--------+--------+--------+ | Prosthesis Ossicular Buckley | | Left: | VALERIO | | 07/02/ | 1002 | | 1.75mm .75mm Ttp Low Input | | Ear | MEDICAL | | 2023 | 223 / | | Impedance Partially Roughened | | | | | | /[id number] | | Surface Rounded - | | | | | | 87 | | [id number]: Qty: 1 on | | | | | | | | 01/22/2019 by Malik Daigle, | | | | | | | | at [facility] IN[facility]IENT REV LOC | | | | | | | + +------+--------+ +--------+--------+--------+ Procedures + +--------+ + + + | [...] | + +--------+ + + + | ANE ETT | Routin | 01/22/2019 | | Results for this | | | e | 2:37 PM | | procedure are in the [...] | + +--------+ + + + | [place] EAR MICROSCOPY | Routin | 12/14/2018 | Cholesteatoma of | | | EXAMINATION | e | 11:59 AM | left middle ear and | | | | | PDT | mastoid Conductive | | | | | | hearing loss of left | | | | | | ear with restricted | | | | | | hearing of right | | | | | | ear | | + +--------+ + + + from Last 3 Months Results PROCEDURE NOTE (01/22/2019 8:45 PM PDT)ETT (01/22/2019 2:37 PM PDT) + + + | Narrative | Performed At | + + + | Omid Kendall CRNA 01/22/2019 2:38 PM [facility] [employer]NA[facility] | | | - ETT Time of Placement: 01/22/2019 2:18 PM Intubation Reason: For | | | surgical procedure Positioning: Sniffing and Supine Location | | | Performed:OR OXYGENATION Patient was preoxygenated Grade: Grade | | | 1 - Ventilated by mask Induction:Routine ETT DETAILS ETT | | | Type:Standard, Hi-Lo Cuffed Intubation Type: Oral Cuff Status: | | | Cuffed Size: 7 ETT secured with adhesive tape Depth at Teeth: 21 | | | cm Airway Leak: No CONFIRMATION Atraumatic placement Positive | | | for EtCO2:Waveform capnography Breath Sounds: Bilateral and equal | | | NARRATIVE Attending was physically present for the critical | | | portions of the procedure as described in the procedure note | | | Attending/Authorizing Provider: Solomon Walker MD Performing Provider: | | | Omid Kendall CRNA Procedure Comments: Atraumatic intubation | | | Teeth, lips, gums and tongue all in preop condition | | + + + INTRAPROCEDURE IMAGING (01/22/2019 12:31 PM PDT) + + [...] + | | | + + + from Last 3 Months Insurance + +--------+ +--------+-------+---------+--------+ | Payer | Benefi | Subscriber | Effect | Phone | Address | Type | | | t Plan | ID | aquiles | | | | | | / | | Dates | | | | | | Group | | | | | | + +--------+ +--------+-------+---------+--------+ | TANK BUILDER HELPER MEDICAID | TANK BUILDER HELPER | xxxxxxxx | 03/12/ | | | Medica | | | [place] | | 2018-P | | | id | | | [place] | | resent | | | | + +--------+ +--------+-------+---------+--------+ + +--------+ +--------+ + + | Guarantor Name | Accoun | Relation to | Date | Phone | Billing Address | | | t Type | Patient | of | | | | | | | | | | + +--------+ +--------+ + + | Juan JoséPatricia | Person | Self [birth year] | [address] | | [place] | al/[place] | | 1995 | [phone] | [address] | | | [place] | | | 1 (Home) | [place] [address] | + +--------+ +--------+ + + Advance Directives + + + + + | Code Status | Date | Date | Comments | | | Activated | Inactivated | | + + + + + | Full Code | 01/22/2019 | 01/23/2019 | | | | 12:31 PM | 2:57 AM | | + + + + +
--- OUTSIDE RECORDS SUMMARY | ~2019-01-28 | XMS | Clinical Summary ---
Demographics + + + | Address | [address] | | | [place] [address] | + + + | Home Phone [...] Team Providers + +------+ + | Care Packaging Sales Representative Name | Role | Phone | + +------+ + | Delilah Lange IMAGING SPECIALIST | PCP | | + +------+ + Source Comments CECI is fully live on both [facility] and [facility] InPatient.[facility] Allergies No Known Allergies Medications + + [...] | 01/24/ | MyChart | Otolaryngology | Malik Daigle MD | RE: medicine | | [...] | 2018 | Event | | Terrance Oscoda, | | | | | | ADELA [...] | | | | | | [facility], | | | | | | [place] [address] | | | | | | [phone] | | | | | | | [...] Left: | COOK | | 09/05/ | [id number] | | Surgisis Porcine Acellular | | Ear | MEDICAL | | 2019 | / | | Collagen Matrix - | | | | | | /[id number] | | [id number]: Qty: 1 on | | | | | | 0529 | | 01/22/2019 by Malik Daigle, | | | | | | | | MD at [facility] REV LOC | | | | | | | + +------+--------+ +--------+--------+--------+ | Prosthesis Ossicular Buckley | | Left: | VALERIO | | 07/02/ | 1002 | | 1.75mm .75mm Ttp Low Input | | Ear | MEDICAL | | 2023 | 223 / | | Impedance Partially Roughened | | | | | | /[id number] | | Surface Rounded - | | | | | | 87 | | [id number]: Qty: 1 on | | | | | | | | 01/22/2019 by Malik Daigle, | | | | | | | | at [facility] IN[facility]IENT REV LOC | | | | [...] | + +--------+ + + + | PA EAR MICROSCOPY | Routin | 12/14/2018 | [...] | | | + +--------+ +--------+-------+---------+--------+ | CHEMICAL LABORATORY SCIENTIST MEDICAID | CHEMICAL LABORATORY SCIENTIST | xxxxxxxx | 03/12/ | | | [...] | | 1 (Home) | [place] [address] | + +--------+ +--------+ + + Advance [...]
--- OUTSIDE RECORDS SUMMARY | ~2019-01-28 | XMS | Encounter Summary ---
Demographics + + + | Address | [address] | | | [place] [address] | + + + | Home Phone | | + + + | Preferred Language | Unknown | + + + | Marital Status | Single | + + + | Sabianist Affiliation | PAG | + + + | Race | White | + + + | Ethnic Group | Not or | + + + Author + + + | Author | [facility] | + + + | Organization | [facility] | + + + | Address | Unknown | + + + | Phone | Unavailable | + + + Support + + +---------+ + | Name | Relationship | Address | Phone | + + +---------+ + | Yumiko Peralta | ECON | Unknown | | + + +---------+ + Care Team Providers + +------+ + | Care Protective Services Officer Name | Role | Phone | + [...] | | | | | [address] [facility] | [place], | | | | | [facility] | [place] [address] | | | | | Mailcode: [address] | [phone] | | | | | [facility] | | | | | | [place], [place] | | | | | | [address] | | | | | | [phone] | | | +--------+ + + + [...] | | | | | [place], | | | | | | [place] [address] | | | | | | [phone] | | | | | | | | +--------+---------+ + + + documented as of this encounter Visit Diagnoses Not on filedocumented in this encounter"
--- OUTSIDE RECORDS SUMMARY | ~2019-01-28 | XMS | Encounter Summary ---
Demographics + + + | Address | [address] | | | [place] [address] | + + + | Home Phone | | + + + | Preferred Language | Unknown | + + + | Marital Status | Single | + + + | Congregation Affiliation | PAG | + + + | Race | White | + + + | Ethnic Group | Not or | + + + Author + + + | Author | [facility] | + + + | Organization | [facility] | + + + | Address | Unknown | + + + | Phone | Unavailable | + + + Support + + +---------+ + | Name | Relationship | Address | Phone | + + +---------+ + | Yumiko Peralta | ECON | Unknown | | + + +---------+ + Care Team Providers + +------+ + | Care Chef Manager Name | Role | Phone | + [...] [address] | | | | | [address] | [place], [place] | | | | | Mailcode: [address] | [address] | | | | | [facility] | [phone] | | | | | [place], [place] | | | | | | [address] | | | | | | [phone] | | | +--------+--------+ + + + [...] | | | | | [place], | | | | | | [place] [address] | | | | | | [phone] | | | | | | | | +--------+---------+ + + + documented as of this encounter Visit Diagnoses Not on filedocumented in this encounter"
--- OUTSIDE RECORDS SUMMARY | ~2019-01-28 | XMS | Encounter Summary ---
Demographics + + + | Address | [address] | | | [place] [address] | + + + | Home Phone | | + + + | Preferred Language | Unknown | + + + | Marital Status | Single | + + + | Anglican Affiliation | PAG | + + + | Race | White | + + + | Ethnic Group | Not or | + + + Author + + + | Author | [facility] | + + + | Organization | [facility] | + + + | Address | Unknown | + + + | Phone | Unavailable | + + + Support + + +---------+ + | Name | Relationship | Address | Phone | + + +---------+ + | Yumiko Peralta | ECON | Unknown | | + + +---------+ + Care Team Providers + +------+ + | Care College Administrator Name | Role | Phone | + +------+ + | Delilah Lange NP | PCP | | + +------+ + Encounter Details +--------+ + + + + | Date | Type | Department | Care Team | Description | +--------+ + + + + | 01/24/ | Telephone | Otolaryngology | Malik Daigle MD | | | 2019 | | Otology Services at | [address] | | | | | [address] | [place], | | | | | [address] | [place] [address] | | | | | Mailcode: [address] | [phone] | | | | | [facility] | | | | | | [place], [place] | | | | | | [address] | | | | | | [phone] | | | +--------+ + + + [...] | | | | | [place], | | | | | | [place] [address] | | | | | | [phone] | | | | | | | | +--------+---------+ + + + documented as of this encounter Visit Diagnoses Not on filedocumented in this encounter"
--- OUTSIDE RECORDS SUMMARY | ~2019-01-28 | XMS | Encounter Summary ---
Demographics + + + | Address | [address] | | | [place] [address] | + + + | Home Phone | | + + + | Preferred Language | Unknown | + + + | Marital Status | Single | + + + | Restoration Affiliation | PAG | + + + | Race | White | + + + | Ethnic Group | Not or | + + + Author + + + | Author | [facility] | + + + | Organization | [facility] | + + + | Address | Unknown | + + + | Phone | Unavailable | + + + Support + + +---------+ + | Name | Relationship | Address | Phone | + + +---------+ + | Yumiko Peralta | ECON | Unknown | | + + +---------+ + Care Team Providers + +------+ + | Care Book Mender Name | Role | Phone | + +------+ + | Delilah Lange NP | PCP | | + +------+ + Reason for Referral PROC - Outpatient Surgery (Routine) + +---------+ + + + + | Status | Reason | Specialty | Diagnoses / | Referred By | Referred To | | | | | Procedures | Contact | Contact | + +---------+ + + + + | Authorized | Coded | Otolaryngolog | Diagnoses | Pilo, | Pilo, | | | | y | | MD Malik | MD Malik | | | | | Cholesteatom | [address] | [address] | | | | | a of left | [place] | | | | | middle ear | Rd | Rd [place], | | | | | and mastoid | [place], [place] | [place] | | | | | Conductive | [address] | [address] | | | | | hearing loss | Phone: | Phone: | | | | | of left ear | [phone] | [phone] | | | | | with | Fax: | Fax: | | | | | restricted | [phone] | [phone] | | | | | hearing of | | | | | | | right ear | | | | | | | Unspecified | | | | | | | eustachian | | | | | | | tube | | | | | | | disorder, | | | | | | | bilateral | | | | | | | Procedures | | | | | | | REQUEST TO | | | | | | | SURGERY | | | | | | | FILM HISTORIAN | | | | | | | [place] | | | | | | | TYMPANOPLAS/ | | | | | | | ANTROT,REBLD | | | | | | | OSSIC CHAIN | | | | | | | OR | | | | | | | TYMPANOPLAS/ | | | | | | | ANTROT,REBLD | | | | | | | OSSIC+PROST | | | | | | | OR | | | | | | | TYMPANOPLAST | | | | | | | Y,REBLD | | | | | | | OSSIC | | | | | | | CHAIN+PROS | | | | | | | OR | | | | | | | TYMPANOPLAST | | | | | | | Y,REBUILD | | | | | | | OSSICUL | | | | | | | CHAIN [place] | | | | | | | TYMPANOPLAS/ | | | | | | | MASTOID,INTC | | | | | | | T [place],REBLD | | | | | | | [place] | | | | | | | TYMPANOPLAS/ | | | | | | | MASTOIDEC,RE | | | | | | | BLD OSSICLES | | | | | | | OR MASTOID | | | | | | | REVISN | | | | | | | ->TYMPANOPLA | | | | | | | STY OR EAR | | | | | | | CARTILAGE | | | | | | | GRAFT TO | | | | | | | FACE OR | | | | | | | REMV TISSUE | | | | | | | FOR GRAFT | | | | | | | OTHR 90 | | | | | | | global | | | + +---------+ + + + + Reason for Visit + + + | Reason | Comments | + + + | New patient | | | consultation | | + + + | Ear problem | Left ear | + + + Intake Referral (Routine) + +--------+ + + + + | Status | Reason | Specialty | Diagnoses / | Referred By | Referred To | | | | | Procedures | Contact | Contact | + +--------+ + + + + | Authorized | | Otolaryngolog | Diagnoses | Tamar, | Pilo, | | | | y | Unspecified | Nicola Enriquez MD | MD Malik | | | | | | [address] | [address] | | | | | cholesteatom | [address] | [facility] | | | | | a, left ear | [place] | Rd [place], | | | | | Procedures | [place], [place] | [place] | | | | | CONSULT [place] | [address] | [address] | | | | | ENT OTOLOGY | Phone: | Phone: | | | | | | [phone] | [phone] | | | | | | Fax: | Fax: | | | | | | [phone] | [phone] | + +--------+ + + + + Encounter Details +--------+---------+ + + + | Date | Type | Department | Care Team | Description | +--------+---------+ + + + | 12/14/ | Office | Otolaryngology | Malik Daigle MD | Cholesteatoma of | | 2019 | Visit | Otology Services at | [address] | left middle ear and | | | | P[facility] [address] | [address] [place], | mastoid (Primary | | | | [address] | [place] [address] | Dx); Conductive | | | | Mailcode: PV01 | [phone] | hearing loss of left | | | | [facility] | | ear with restricted | | | | [place], [place] | | hearing of right | | | | [address] | | ear | | | | [phone] | | | +--------+---------+ + + + Social History + +-------+ +--------+------+ | Tobacco Use | Types | Packs/Day | Years | Date | | | | | Used | | + +-------+ +--------+------+ | Current Every Day | | | | | | Smoker | | | | | + +-------+ +--------+------+ + +---+---+---+ | Smokeless Tobacco: | | | | | Never Used | | | | + +---+---+---+ + + + | Sex Assigned at [...] this encounter Last Filed Vital Signs + +---------+ + + | Vital Sign | Reading | Time Taken | Comments | + +---------+ + + | Blood Pressure | 117/62 | 12/14/2018 10:34 AM | | | | | PDT | | + +---------+ + + | Pulse | 81 | 12/14/2018 10:34 AM | | | | | PDT | | + +---------+ + + | Temperature | - | - | | + +---------+ + + | Respiratory Rate | - | - | | + +---------+ + + | Oxygen Saturation | - | - | | + +---------+ + + | Inhaled Oxygen | - | - | | | Concentration | | | | + +---------+ + + | Weight | - | - | | + +---------+ + + | Height | - | - | | + +---------+ + + | Body Mass Index | - | - | | + +---------+ + + documented in this encounter Patient Instructions Patient Instructions Cheryl Rivera MD - 12/14/2018 10:45 AM PDTThank you so much for se [facility] in the Division of Otology, Neurotology, and Skull Base Surgery. We hope we have been able to help you. We will schedule you for surgery for your left-sided cholesteatoma. Someone will contact chloe grier to arrange this from our clinic. If you have any questions about your care, please feel free to contact me at one of the num bers below or through [employer]. Your questions can best be answered during business hours at [phone], but you can always reach the [facility] power plant operator apprentice at [phone] to contac t our on-call team. We look forward to taking care of you in the future. Malik Daigle MD Transportation Assistant, Division of Otology, Neurotology, and Skull Base Surgery [email or web address] documented in this encounter Progress Notes Malik Daigle MD - 12/14/2018 10:45 AM PDTRESIDENT ATTESTATION This patient was seen in conjunction with a resident. I personally interviewed the patient , duplicated the pertinent parts of the physical examination and procedure, and personally f ormulated the plan. I have reviewed, entered my findings, and agree with the resident's docu mentation. Malik Daigle MD Transportation Assistant, Division of Otology, Neurotology, and Skull Base Surgery Department of Otolaryngology-Head and Neck Surgery [address], [place] [address] tel: [phone] fax: [phone] [email or web address] Malik Li MD - 10:45 AM PDTRESIDENT ATTESTATION This patient was seen in conjunction with a resident. I personally interviewed the patient , duplicated the pertinent parts of the physical examination and procedure, and personally f ormulated the plan. I have reviewed, entered my findings, and agree with the resident's docu mentation. Malik Daigle MD Transportation Assistant, Division of Otology, Neurotology, and Skull Base Surgery Department of Otolaryngology-Head and Neck Surgery [address], [place] [address] tel: [phone] fax: [phone] [email or web address] Malik Li MD - 10:45 AM PDT Division of Otology, Neurotology, and Skull Base Surgery Department of Otolaryngology/Head and Neck Surgery [facility] Patient: Patricia Can Referring Provider: Nicola Boyle MD Author: Malik Daigle MD Consultation Date: 12/14/2018 HISTORY Chief Complaint: Ear pain, otorrhea History of Present Illness: Patricia Can is a 23 y.o. female who is referred fo r consultation regarding symptoms of bilateral conductive hearing loss and concern for left- sided cholesteatoma. Extensive otologic history includes bilateral exostoses, bilateral Eust achian tube dysfunction, bilateral mastoiditis L>R, and left-sided cholesteatoma. Previously followed by Dr. Vance, ENT in [place]. Underwent left radical mastoidectomy, bilateral tympanostomies and adenoidectomy on 02/09/16. On 11/06/18 patient underwent examination of bila teral ears under anesthesia with Dr. Boyle. During the procedure partial removal of left retraction pocket cholesteatoma and left myringotomy were performed. At the time squamous de bris was removed from right ear and a ventilation tube in the posterior eardrum was placed. The patient reports 3 surgeries on the left sided ear, including PE x 2 in the left and a m astoidectomy in 2016. PE tube placement on the right most recently, in October 2018 after her a udiogram. She reports that her left ear is what brings her in because there is a "mass". She reports her left-sided hearing is worse. Bilateral otorrhea, worse in left, that she reports every o ther day. Bilateral otalgia, left worse than right (rarely on right); located in her neck an d into her head and cause "excrutiating migraines", for which she takes APAP. She reports in termittent dizziness when the migraine gets bad, described as lightheaded and non spinning d izziness. She reports primarily left-sided aural fullness. Her aural fullness was helped by a PE tube on the right. Reports history of metallic taste. Reports no medical problems and tolerated GA in the past. Past Medical History: GERD Migraine Past Surgical History: Ear surgeries as above Adenotonsillectomy Allergies: Allergies not on file Medications: No current outpatient medications on file. Family History: Negative for family history of hearing loss Social History: Social History Tobacco Use Smoking status: Not on file Substance Use Topics Alcohol use: Not on file Drug use: Not on file 1/2 ppd smoking down from 1 ppd. Smoking since age 18. Review of Systems: A full 10 point review of systems was completed and is negative, except for the pertinent p ositives and negatives as noted above in the history of present illness. PHYSICAL EXAM Vitals: Facility age limit for growth percentiles is 18 years. Constitutional: Non-toxic, no apparent distress. Face: Normal facial contour. Eyes: Extraocular movements intact. Sclera non-icteric. Nose: No external nasal deformity. Oral Cavity: Tongue and palate mobility normal. No mucosal lesions noted on hard palate, upper or lower alveolous, buccal mucosa, floor of mouth, lips or tongue. Oropharynx: Tonsillar fossae normal. Neck: No adenopathy or masses. Normal range of motion. Respiratory: Unlabored. No cyanosis. Cardiovascular: Normal perfusion. No edema. Musculoskeletal: Normal muscle mass. Normal gait. Skin: No suspicious skin lesions noted on scalp, face, ears, or neck. Neuro: Normal gait. Cranial nerves: II, III, IV, : Normal range of movement. No nystagmus. V: V1, V2, and V3 intact and equal to light touch bilaterally VII: House - Brackmann I/ on the right and I/ on the left VIII: Using a 512k tuning fork, Carrillo was to the right, Left Rinne AC=BC, Right Rinne AC>B C X: Voice grossly normal. XI: Shoulder motion normal. XII: Tongue motion normal. PROCEDURES Binocular otomicroscopy: Left external auditory canal - Thinning of the posterior canal EAC skin. No edema or otorr hea. Left tympanic membrane - Pars tensa retraction pocket with cerumen and debris within it. S tapes visualized through this. No effusion. Right external auditory canal - Normal canal with prominent bulge posteroinferiorly. Right tympanic membrane - Normal, aerated with PE tube inferiorly placed. DATA REVIEWED Audiogram 10/30/18 from [facility] (Supervisor Machining Eliana Baker) Previous Audiogram 09/08/15 from [facility] (Supervisor Machining Eliana Baker) Previous Pre-Op CT temporal bone without contrast (images reviewed by me): 01/11/16 at [facility] in [place] ASSESSMENT 1) Left-sided cholesteatoma with deep pars tensa retraction pocket 2) Bilateral conductive hearing loss, worse on left. 3) Bilateral otalgia PLAN 1) Plan for left-sided tympanomastoidectomy with ear cartilage graft with possible OCR I had a long discussion about the pathogenesis and treatment of cholesteatoma. I have recom mended surgical excision using an endoscopic approach, with a postauricular approach as need ed for a mastoidectomy. A mastoidectomy may be required to access and remove disease in the middle ear and or mastoid. Disarticulation of the ossicular chain may be necessary in order to completely eradicate all disease. There is about a 30% chance that the disease could recu r. A 2nd look surgery is typically recommended six to twelve months after the original surge ry. Sometimes a MRI with diffusion weighted imaging can be used in lieu of 2nd look surgery, however if the ossicles were not in continuity a permanent conductive hearing loss would re sult. The risks of surgery include further hearing loss, dizziness, vertigo, facial paralysi s, change in taste from chorda tympani nerve injury and CSF leak were explained. I informed that if left untreated cholesteatomas can progressively enlarge and destroy adjacent structu res such as bone, ossicles, and the facial nerve. Occasionally progressive enlargement can l ead to intracranial complications such as meningitis and abscess formation. Smoking cessation was addressed. MD Malik MCDANIEL MD Transportation Assistant, Division of Otology, Neurotology, and Skull Base Surgery Department of Otolaryngology-Head and Neck Surgery [address], [address] [address] tel: [phone] fax: [email or web address] documented in this e ncounter Plan of Treatment +--------+---------+ + + + | Date | Type | Specialty | Care Team | Description | +--------+---------+ + + + | 02/20/ | Office | Otolaryngology | Malik Daigle MD | | | 2018 | Visit | | [address] | | | | | | [place], | | | | | | [place] [address] | | | | | | [phone] | | | | | | | | +--------+---------+ + + + documented as of this encounter Procedures + +--------+ + + + | Procedure Name | Priori | Date/Time | Associated Diagnosis | Comments | | | ty | | | | + +--------+ + + + | [place] EAR MICROSCOPY | Routin | 12/14/2018 | [...] | | + +--------+ + + + documented in this encounter Visit Diagnoses + + | Diagnosis | + + | Cholesteatoma of left middle ear and mastoid - Primary | + + | Conductive hearing loss of left ear with restricted hearing of right ear | + + documented in this encounter
--- OUTSIDE RECORDS SUMMARY | ~2019-01-28 | XMS | Encounter Summary ---
Demographics + + + | Address | [address] | | | [place] [address] | + + + | Home Phone | | + + + | Preferred Language | Unknown | + + + | Marital Status | Single | + + + | Druze Affiliation | PAG | + + + [...] Team Providers + +------+ + | Care Flight Control Tower Operator Name | Role | Phone | + +------+ + | Delilah Lange NP | PCP | | + +------+ + Encounter Details +--------+ + + + + | Date | Type | Department | Care Team | Description | +--------+ + + + + | 01/22/ | Pharmacy | [facility] | | | | 2019 | Visit | & [facility] | | | | | | [address] | | | | | | Mailcode: [place] | | | | | | [facility] | | | | | | Healing, [address] | | | | | | [place], [place] | | | | | | [address] | | | | | | [phone] | | | +--------+ + + + [...] | | | | | [address] [place], | | | | | | [place] [address] | | | | | | [phone] | | | | | | | | +--------+---------+ + + + documented as of this encounter Visit Diagnoses Not on filedocumented in this encounter"
--- OUTSIDE RECORDS SUMMARY | ~2019-01-28 | XMS | Encounter Summary ---
Demographics + + + | Address | [address] | | | [place] [address] | + + + | Home Phone | | + + + | Preferred Language | Unknown | + + + | Marital Status | Single | + + + | Denominational Affiliation | PAG | + + + [...] Team Providers + +------+ + | Care Certified Orthotist Practice Manager Name | Role | Phone | + +------+ + | Delilah Lange NP | PCP | | + +------+ + Encounter Details +--------+--------+ + + + | Date | Type | Department | Care Team | Description | +--------+--------+ + + + | 01/22/ | Travel [...] | | | | | [address] [place], | | | | | | [place] [address] | | | | | | [phone] | | | | | | | | +--------+---------+ + + + documented as of this encounter Visit Diagnoses Not on filedocumented in this encounter"
--- OUTSIDE RECORDS SUMMARY | ~2019-01-28 | XMS | Encounter Summary ---
Demographics + + + | Address | [address] | | | [place] [address] | + + + | Home Phone | | + + + | Preferred Language | Unknown | + + + | Marital Status | Single | + + + | Baptism Affiliation | PAG | + + + | Race | White | + + + | Ethnic Group | Not or | + + + Author + + + | Author | [facility] | + + + | Organization | [facility] | + + + | Address | Unknown | + + + | Phone | Unavailable | + + + Support + + +---------+ + | Name | Relationship | Address | Phone | + + +---------+ + | Yumiko Peralta | ECON | Unknown | | + + +---------+ + Care Team Providers + +------+ + | Care Neon Sign Installer Name | Role | Phone | + +------+ + | Delilah Lange NP | PCP | | + +------+ + Encounter Details +--------+ + + + + | Date | Type | Department | Care Team | Description | +--------+ + + + + | 01/24/ | MyChart | Otolaryngology | Malik Daigle MD | RE: medicine | | 2019 | Encounter | Otology Services at | [address] | | | | | [facility] [address] | [address] [address] [place], | | | | | [address] | [place] [address] | | | | | Mailcode: PV01 | [phone] | | | | | [facility] | | | | | | [place], [place] | | | | | | [address] | | | | | | [phone] | | | +--------+ + + + [...] | | | | | [address] [place], | | | | | | [place] [address] | | | | | | [phone] | | | | | | | | +--------+---------+ + + + documented as of this encounter Visit Diagnoses Not on filedocumented in this encounter"
--- OUTSIDE RECORDS SUMMARY | ~2019-01-28 | XMS | Encounter Summary ---
Demographics + + + | Address | [address] | | | [place] [address] | + + + | Home Phone | | + + + | Preferred Language | Unknown | + + + | Marital Status | Single | + + + | Yazidi Affiliation | PAG | + + + | Race | White | + + + | Ethnic Group | Not or | + + + Author + + + | Author | [facility] | + + + | Organization | [facility] | + + + | Address | Unknown | + + + | Phone | Unavailable | + + + Support + + +---------+ + | Name | Relationship | Address | Phone | + + +---------+ + | Yumiko Peralta | ECON | Unknown | | + + +---------+ + Care Team Providers + +------+ + | Care Sand Bobber Name | Role | Phone | + +------+ + | Delilah Lange NP | PCP | | + +------+ + Encounter Details +--------+ + + + + | Date | Type | Department | Care Team | Description | +--------+ + + + + | 01/22/ | Procedure | [facility] | | | | 2019 | Pass | [facility] | | | | | [facility] | | | | | | Center Admitting | | | | | | Desk Located on the | | | | | | 4th floor [address] | | | | | | [place], | | | | | | [place] [address] | | | +--------+ + + + [...] | | | | | [address] [place], | | | | | | [place] [address] | | | | | | [phone] | | | | | | | | +--------+---------+ + + + documented as of this encounter Visit Diagnoses Not on filedocumented in this encounter"
--- OUTSIDE RECORDS SUMMARY | ~2019-01-28 | XMS | Encounter Summary ---
Demographics + + + | Address | [address] | | | [place] [address] | + + + | Home Phone | | + + + | Preferred Language | Unknown | + + + | Marital Status | Single | + + + | Buddhism Affiliation | PAG | + + + [...] Team Providers + +------+ + | Care Bessemer Converter Operator Name | Role | Phone | [...] | | | | | [address] [place], | | | | | | [place] [address] | | | | | | [phone] | | | | | | | | +--------+---------+ + + + documented as of this encounter Visit Diagnoses Not on filedocumented in this encounter"
--- OUTSIDE RECORDS SUMMARY | ~2019-01-28 | XMS | Encounter Summary ---
Demographics + + + | Address | [address] | | | [place] [address] | + + + | Home Phone | | + + + | Preferred Language | Unknown | + + + | Marital Status | Single | + + + | Zoroastrian Affiliation | PAG | + + + | Race | White | + + + | Ethnic Group | Not or | + + + Author + + + | Author | [facility] | + + + | Organization | [facility] | + + + | Address | Unknown | + + + | Phone | Unavailable | + + + Support + + +---------+ + | Name | Relationship | Address | Phone | + + +---------+ + | Yumiko Peralta | ECON | Unknown | | + + +---------+ + Care Team Providers + +------+ + | Care Nursing Unit Coordinator Name | Role | Phone | + [...] +--------+--------+ + + + + Encounter Details +--------+ + + + + | Date | Type | Department | Care Team | Description | +--------+ + + + + | 01/22/ | Anesthesia | [facility] | Solomon Walker MD | | | 2019 | Event | [facility] | [address] | | | | | and Healing Surgery | [place], | | | | | [facility] | [place] [address] | | | | | Desk Located on the | [phone] | | | | | 4th floor [address] | | | | | | [address] [place], | [place], | | | | | [place] [address] | CUSTOM FEED CORN OPERATOR [address] | | | | | | [address] | | | | | | [place], [place] | | | | | | [address] | | | | | | [phone] | | | | | | | | +--------+ + + + + Anesthesia Record + + + + + | Procedure Name | Responsible | Anesthesia Start | Anesthesia Stop Time | | | Anesthesiologist | Time | | + + + + + | LEFT EAR CARTILAGE | Solomon Walker MD | 01/22/19 8727 | 01/22/19 6094 | | GRAFT, | | | | [...] | Meds | +------+ + + + | Name | Total | + + + | ceFAZolin (ANCEF) injection 2 g | 2 g | + + + | midazolam | 2 mg | + + + | fentaNYL | 400 mcg | + + + | lidocaine 2% | 120 mg | + + + | propofol | 200 mg | + + + | succinylcholine | 100 mg | + + + | lidocaine 4% LTA | 3 mL | + + + | dexamethasone | 10 mg | + + + | ondansetron | 4 mg | + + + | propofol (DIPRIVAN) 200 mg | 433,888 mcg | + + + | lactated ringers IV | 1,500 mL | + + + + + | Name | + + | O2 FR Avance (Total Liters) | + + | Air FR Avance (l/min) | + + | Insp Sevo | + + | Et Sevo | + + | Insp N2O % | + + + + | No [...] Nathan RN | | IV | Positive; 01/22/192033 | | | +--------+ + + + | ETT | 01/22/19; 1418 (created via | 01/22/19 141 by | 01/22/191741 by | | | procedure documentation); 7; | [place], | Matt Humphreys, ROBERTH | | | Oral; Cuffed; 01/22/19; 1741 | CUSTOM FEED CORN OPERATOR | | +--------+ + + + | Incisi | 01/22/19; 1507; Left; ear (post | 01/22/191506 by | [...] | | | | | [place], | | | | | | [place] [address] | | | | | | [phone] | | | | | | | [...] + + documented in this encounter Results ETT (01/22/2019 2:37 PM PDT) + + + [...] preop condition | | + + + documented in this encounter Visit Diagnoses Not on filedocumented in this encounter Administered Medications + +--------+ +------+------+------+ | Medication Order | MAR | Action | Dose | Rate | Site | | | Action | Date | | | | + +--------+ +------+------+------+ | ceFAZolin (ANCEF) injection 2 g | Given | 01/23/20 | 2 g | | | | 2 g, intravenous, PREPROCEDURE | | 19 2:25 | | | | | ONCE, 1 dose, Starting Tue | | PM PDT | | | | | 01/22/19 at 1231, Until Tue | | | | | | | 01/22/19 at 1425 | | | | | | + +--------+ +------+------+------+ +---+---+ | | | +---+---+ + +-------+ +-------+---+---+ | dexamethasone (DECADRON) | Given | 01/23/20 | 10 mg | | | | injection INTRAPROCEDURE PRN, | | 19 2:34 | | | | | Starting 01/22/19 at 1434, | | PM PDT | | | | | Until 01/22/19 at 1744 | | | | | | + +-------+ +-------+---+---+ +---+---+ | | | +---+---+ + +-------+ +--------+---+---+ | fentaNYL (SUBLIMAZE) injection | Given | 01/23/20 | 25 mcg | | | | INTRAPROCEDURE PRN, Starting Tue | | 19 5:35 | | | | | 01/22/19 at 1410, Until Tue | | PM PDT | | | | | 01/22/19 at 1744 | | | | | | + +-------+ +--------+---+---+ +-------+ +--------+---+---+ | Given | 01/23/20 | 25 mcg | | | | | 19 5:25 | | | | | | PM PDT | | | | +-------+ +--------+---+---+ | Given | 01/23/20 | 25 mcg | | | | | 19 5:16 | | | | | | PM [...] PDT | | | | +---------+ +---+---+---+ +---+---+ | | | +---+---+ + +-------+ +------+---+---+ | lidocaine (LTA) 4 % topical | Given | 01/23/20 | 3 mL | | | | solution INTRAPROCEDURE PRN, | | 19 2:17 | | | | | Starting 01/22/19 at 1417, | | PM PDT | | | | | Until 01/22/19 at 1744 | | | | | | + +-------+ +------+---+---+ +---+---+ | | | +---+---+ + +-------+ +-------+---+---+ | lidocaine (XYLOCAINE MPF) 2 % | Given | 01/23/20 | 40 mg | | | | (20 mg/mL) injection | | 19 5:31 | | | | | INTRAPROCEDURE PRN, Starting Tue | | PM PDT | | | | | 01/22/19 at 1413, Until Tue | | | | | | | 01/22/19 at 1744 | | | | | | + +-------+ +-------+---+---+ +-------+ +-------+---+---+ | Given | 01/23/20 | 80 mg | | | | | 19 2:13 | | | | | | PM PDT | | | | +-------+ +-------+---+---+ +---+---+ | | | +---+---+ + +-------+ +------+---+---+ | midazolam (PF) (VERSED) | Given | 01/23/20 | 2 mg | | | | injection INTRAPROCEDURE PRN, | | 19 2:05 | | | | | Starting 01/22/19 at 1405, | | PM PDT | | | | | Until 01/22/19 at 1744 | | | | | | + +-------+ +------+---+---+ +---+---+ | | | +---+---+ + +-------+ +------+---+---+ | ondansetron (ZOFRAN) injection | Given | 01/23/20 | 4 mg | | | | INTRAPROCEDURE PRN, Starting Tue | | 19 4:37 | | | | | 01/22/19 at 1637, Until Tue | | PM PDT | | | | | 01/22/19 at 1744 | | | | | | + +-------+ +------+---+---+ +---+---+ | | | +---+---+ + + + + +---+---+ | propofol (DIPRIVAN) 200 mg | Rate/Dos | 01/23/20 | 100 | | | | INTRAPROCEDURE CONTINUOUS PRN, | e Change | 19 5:26 | mcg/kg/m | | | | Starting 01/22/19 at 1434, | | PM PDT | in | | | | Until 01/22/19 at 1744 | | | | | | + + + + +---+---+ + + + +---+---+ | Rate/Dose Change | 01/23/20 | 75 | | | | | 19 5:19 | mcg/kg/m | | | | | PM PDT | in | | | + + + +---+---+ | Rate/Dose Change | 01/23/20 | 50 | | | | | 19 5:13 | mcg/kg/m | | | | | PM PDT | in | | | + + + +---+---+ +---+---+ | | | +---+---+ + +-------+ +--------+---+---+ | propofol (DIPRIVAN) injection | Given | 01/23/20 | 200 mg | | | | INTRAPROCEDURE PRN, Starting Tue | | 19 2:15 | | | | | 01/22/19 at 1415, Until Tue | | PM PDT | | | | | 01/22/19 at 1744 | | | | | | + +-------+ +--------+---+---+ +---+---+ | | | +---+---+ + +-------+ +--------+---+---+ | succinylcholine (ANECTINE) | Given | 01/23/20 | 100 mg | | | | injection INTRAPROCEDURE PRN, | | 19 2:17 | | | | | Starting 01/22/19 at 1417, | | PM PDT | | | | | Until 01/22/19 at 1744 | | | | | | + +-------+ +--------+---+---+ +---+---+ | | | +---+---+ documented in this encounter"
--- OUTSIDE RECORDS SUMMARY | ~2019-01-28 | XMS | Encounter Summary ---
Demographics + + + | Address | [address] | | | [place] [address] | + + + | Home Phone | | + + + | Preferred Language | Unknown | + + + | Marital Status | Single | + + + | Zoroastrianism Affiliation | PAG | + + + | Race | White | + + + | Ethnic Group | Not or | + + + Author + + + | Author | [facility] | + + + | Organization | [facility] | + + + | Address | Unknown | + + + | Phone | Unavailable | + + + Support + + +---------+ + | Name | Relationship | Address | Phone | + + +---------+ + | Yumiko Peralta | ECON | Unknown | | + + +---------+ + Care Team Providers + +------+ + | Care Shop Girl Name | Role | Phone | + [...] | | | | | Conductive | [address] | [address] | | | | | hearing loss | Phone: | Phone: | | | | | of left ear | [phone] | [phone] | | | | | with | Fax: | Fax: | | | | | restricted | [phone] | [phone] | | | | | hearing of [...] | | | | | | | CONFLICTS ANALYST | | | | | | | [place] | | | | | | | TYMPANOPLAS/ | | | | | | | ANTROT,REBLD | | | | | | | OSSIC CHAIN | | | | | | | [place] | | | | | | | TYMPANOPLAS/ | | | | | | | ANTROT,REBLD | | | | | | | OSSIC+PROST | | | | | | | [place] | | | | | | | TYMPANOPLAST | | | | | | | Y,REBLD | | | | | | | OSSIC | | | | | | | CHAIN+PROS | | | | | | | [place] | | | | | | | TYMPANOPLAST | | | | | | | Y,REBUILD | | | | | | | OSSICUL | | | | | | | CHAIN [place] | | | | | | | TYMPANOPLAS/ | | | | | | | MASTOID,INTC | | | | | | | T [place],REBLD | | | | | | | [place] | | | | | | | TYMPANOPLAS/ | | | | | | | MASTOIDEC,RE | | | | | | | BLD OSSICLES | | | | | | | [place] MASTOID | | | | | | | REVISN | | | | | | | ->TYMPANOPLA | | | | | | | STY [place] EAR | | | | | | | CARTILAGE | | | | | | | GRAFT TO | | | | | | | FACE RI | | | | | | | [...] | cholesteatom | [address] | [facility] | | | | | a, left ear | [place] | Rd [place], | | | | | Procedures | [place], [place] | [place] | | | | | CONSULT TO | [address] | [address] | | | | | ENT OTOLOGY | Phone: | Phone: | | | | | | [phone] | [phone] | | | | | | Fax: | Fax: | | | | | | [phone] | [phone] | + +--------+ + + + + [...] | | [address] | [place] [address] | Dx); Conductive | | | | Mailcode: PV01 | [phone] | hearing loss of left | | | | [facility] | | ear with restricted | | | | [place], [place] | | hearing of right | | | | [address] | | ear | | | | [phone] | | | +--------+---------+ + + + [...] AM PDTThank you so much for se [facility] care in the Division of Otology, [...] of the num bers below or through [employer]. Your questions can best be answered during business hours at [phone], but you can always reach the [facility] notching press operator at [phone] to contac t our on-call team. We look forward to taking care of you in the future. Malik Daigle MD Woven Paper Hat Mender, Division of Otology, Neurotology, and Skull Base Surgery [email or web address] documented in this encounter Progress Notes Malik Daigle MD - 12/14/2018 10:45 AM PDTRESIDENT ATTESTATION This patient was seen in conjunction with a resident. I personally interviewed the patient , duplicated the pertinent parts of the physical examination and procedure, and personally f ormulated the plan. I have reviewed, entered my findings, and agree with the resident's docu mentation. Malik Daigle MD Woven Paper Hat Mender, Division of Otology, Neurotology, and Skull Base Surgery Department of Otolaryngology-Head and Neck Surgery [address], [place] [address] tel: [phone] fax: [phone] [email or web address] Malik Li MD - 10:45 AM PDTRESIDENT ATTESTATION This patient was seen in conjunction with a resident. I personally interviewed the patient , duplicated the pertinent parts of the physical examination and procedure, and personally f ormulated the plan. I have reviewed, entered my findings, and agree with the resident's docu mentation. Malik Daigle MD Woven Paper Hat Mender, Division of Otology, Neurotology, and Skull Base Surgery Department of Otolaryngology-Head and Neck Surgery [address], [place] [address] tel: [phone] fax: [phone] [email or web address] Malik Li MD - 10:45 AM PDT Division of Otology, Neurotology, and Skull Base Surgery Department of Otolaryngology/Head and Neck Surgery [facility] Patient: [place] Can Referring Provider: Nicola Boyle [...] Previously followed by Dr. Vance, ENT in [place]. Underwent left radical mastoidectomy, bilateral tympanostomies and [...] placed. DATA REVIEWED Audiogram 10/30/18 from [facility] (Senior Training And Development Rep Eliana Baker) Previous Audiogram 09/08/15 from [facility] (Senior Training And Development Rep Eliana Baker) Previous Pre-Op CT temporal bone without contrast (images reviewed by me): 01/11/16 at [facility] in [place] ASSESSMENT 1) Left-sided cholesteatoma with deep pars [...] cessation was addressed. MD Malik MCDANIEL MD Woven Paper Hat Mender, Division of Otology, Neurotology, and Skull Base Surgery Department of Otolaryngology-Head and Neck Surgery [address], [address] [address] tel: [phone] fax: [phone] [email or web address] documented in this e ncounter Plan of Treatment +--------+---------+ + + + | Date | Type | Specialty | Care Team | Description | +--------+---------+ + + + | 02/20/ | Office | Otolaryngology | Malik Daigle MD | | | 2018 | Visit | | [address] | | | | | | [place], | | | | | | [place] [address] | | | | | | [phone] | | | | | | | | +--------+---------+ + + + documented as of this encounter Procedures + +--------+ + + + | Procedure Name | Priori | Date/Time | Associated Diagnosis | Comments | | | ty | | | | + +--------+ + + + | RI EAR MICROSCOPY | Routin | 12/14/2018 | [...]
--- OUTSIDE RECORDS SUMMARY | ~2019-01-28 | XMS | Encounter Summary ---
Demographics + + + | Address | [address] | | | [place] [address] | + + + | Home Phone [...] Team Providers + +------+ + | Care Gauge And Instrument Inspector Name | Role | Phone | + +------+ + | Delilah Lange NP | PCP | | + +------+ + Encounter Details +--------+--------+ + + + | Date | Type | Department | Care Team | Description | +--------+--------+ + + + | 12/14/ | Travel | | | | | 2019 | | | | | +--------+--------+ + + + Social History + +-------+ [...] | | | | | [place], | | | | | | [place] [address] | | | | | | [phone] | | | | | | | | +--------+---------+ + + + documented as of this encounter Visit Diagnoses Not on filedocumented in this encounter"
--- OUTSIDE RECORDS SUMMARY | ~2019-01-28 | XMS | Encounter Summary ---
Demographics + + + | Address | [address] | | | [place] [address] | + + + | Home Phone | | + + + | Preferred Language | Unknown | + + + | Marital Status | Single | + + + | Advent Affiliation | PAG | + + + [...] Team Providers + +------+ + | Care Protection Specialist Name | Role | Phone | + +------+ + | Delilah Lange NP | PCP | | + +------+ + Encounter Details +--------+ + + + + | Date | Type | Department | Care Team | Description | +--------+ + + + + | 01/24/ | Pharmacy | [facility] | | | | 2019 | Visit | & [facility] | | | | | | [address] | | | | | | Mailcode: [place] | | | | | | [facility] | | | | | | Healing, [address] | | | | | | [place], [place] | | | | | | [address] | | | | | | [phone] | | | +--------+ + + + [...] | | | | | [place], | | | | | | [place] [address] | | | | | | [phone] | | | | | | | | +--------+---------+ + + + documented as of this encounter Visit Diagnoses Not on filedocumented in this encounter"
--- OUTSIDE RECORDS SUMMARY | ~2019-01-28 | XMS | Encounter Summary ---
Demographics + + + | Address | [address] | | | [place] [address] | + + + | Home Phone | | + + + | Preferred Language | Unknown | + + + | Marital Status | Single | + + + | Spiritism Affiliation | PAG | + + + [...] Team Providers + +------+ + | Care Pigs Feet Cleaner Name | Role | Phone | + [...] [facility] [address] | [place], | | | | | [address] | [place] [address] | | | | | Mailcode: PV01 | [phone] | | | | | [facility] | | | | | | [place], [place] | | | | | | [address] | | | | | | [phone] | | | +--------+ + + + [...] | | | | | [place], | | | | | | [place] [address] | | | | | | [phone] | | | | | | | | +--------+---------+ + + + documented as of this encounter Visit Diagnoses Not on filedocumented in this encounter"
--- OUTSIDE RECORDS SUMMARY | ~2019-01-28 | XMS | Encounter Summary ---
Demographics + + + | Address | [address] | | | [place] [address] | + + + | Home Phone | | + + + | Preferred Language | Unknown | + + + | Marital Status | Single | + + + | Hindu Affiliation | PAG | + + + [...] Team Providers + +------+ + | Care Otologist Name | Role | Phone | + [...] | | | | | [place], | | | | | | [place] [address] | | | | | | [phone] | | | | | | | | +--------+---------+ + + + documented as of this encounter Visit Diagnoses Not on filedocumented in this encounter"
--- OUTSIDE RECORDS SUMMARY | ~2019-01-28 | XMS | Encounter Summary ---
Demographics + + + | Address | [address] | | | [place] [address] | + + + | Home Phone | | + + + | Preferred Language | Unknown | + + + | Marital Status | Single | + + + | Anabaptist Affiliation | PAG | + + + [...] Team Providers + +------+ + | Care Camp Counselor Name | Role | Phone | + +------+ + | Delilah Lange NP | PCP | | + +------+ + Encounter Details +--------+ + + + + | Date | Type | Department | Care Team | Description | +--------+ + + + + | 01/20/ | MyChart | Otolaryngology | Malik Daigle MD | flu shot | | 2019 | Encounter | Otology Services at | [address] | | | | | [facility] [address] | [place], | | | | | [address] | [place] [address] | | | | | Mailcode: PV01 | [phone] | | | | | [facility] | | | | | | [place], [place] | | | | | | [address] | | | | | | [phone] | | | +--------+ + + + [...] | | | | | [place], | | | | | | [place] [address] | | | | | | [phone] | | | | | | | | +--------+---------+ + + + documented as of this encounter Visit Diagnoses Not on filedocumented in this encounter"
--- OUTSIDE RECORDS SUMMARY | ~2019-01-28 | XMS | Encounter Summary ---
Demographics + + + | Address | [address] | | | [place] [address] | + + + | Home Phone | | + + + | Preferred Language | Unknown | + + + | Marital Status | Single | + + + | Pentecostalism Affiliation | PAG | + + + | Race | White | + + + | Ethnic Group | Not or | + + + Author + + + | Author | [facility] | + + + | Organization | [facility] | + + + | Address | Unknown | + + + | Phone | Unavailable | + + + Support + + +---------+ + | Name | Relationship | Address | Phone | + + +---------+ + | Yumiko Peralta | ECON | Unknown | | + + +---------+ + Care Team Providers + +------+ + | Care Heating Mechanic Name | Role | Phone | + [...] + + | 01/22/ | Hospital | [facility] | Malik Daigle MD | | | 2019 | Encounter | [address] | [address] | | | | | [place] Mailcode: [facility] | [place], | | | | | [facility] | [place] [address] | | | | | Health and Healing, | [phone] | | | | | [place] [address] | | | | | | [place], [place] | | | | | | [address] | | | | | | [phone] | | | +--------+ + + + [...] for pain. If pain is severe during th e first week, can use Oxycodone tablets [...] appointment. You may call our office at [phone] (daytimes) or [phone] (after hours; urgent jenny ls only) with [...] - Head and Neck Surgery (ENT) resident senior professional services consultant. Malik Daigle MD Recovery Engineer, Division of Otology, Neurotology, and Skull Base Surgery [email or web address] Additional Instructions Eugenie Nathan RN - 01/22/2019General Discharge Instructions for [facility]-Day Procedure Patients: ? Remember that you are [...] a patient satisfacti on survey from "Sukumar Altruikkaleb". We would appreciate your feedback on the [...] | | | | | [place], | | | | | | [place] [address] | | | | | | [phone] | | | | | | | [...] and mastoid - Primary | + + documented in this encounter Administered Medications + +--------+ [...] | | | | | CONTINUOUS, Starting Tu01/22/19 | anesthes | PM PDT | | | | | at 1245, Until Mon01/23/19 at | iology | | | | [...] PRN, 1 | | | dose, Starting Tu01/22/19 at | | | 1449, Until Mon01/23/19 at 0252, | | | nausea/vomiting due to | | | dehydration | | + +---+ | | | + +---+ | lactated ringers IV 500 mL, | | | intravenous, POSTPROCEDURE PRN, 1 | | | dose, Starting 01/22/19 at | | | 1450, Until Mon01/23/19 at 025, | | | systolic blood pressure less | | | than 90 mmHg. 1st line | | + +---+ | | | + +---+ | lidocaine (XYLOCAINE) 10 mg/mL | | | (1 %) injection subcutaneous, | | | PREPROCEDURE PRN, Starting Mon | | | 01/22/19 at 1231, Until Mon | | | 01/23/19 at 0252, IV start | | + +---+ | | | + +---+ | naloxone (NARCAN) injection | | | intravenous, POSTPROCEDURE PRN, | | | Starting 01/22/19 at 1449, | | | Until Mon01/23/19 at 0252, | | | hypopnea | | + +---+ | | | + +---+ + +-------+ +------+---+---+ | oxyCODONE (immediate release) | Given | 01/23/20 | 5 mg | | | | (ROXICODONE) tablet 5-10 mg 5-10 | | 19 6:53 | | | [...] PRN, 1 | | | dose, Starting Mon01/22/19 at | | | 1449, Until Mon01/23/19 at 0252, | | | moderate pain while in Phase 1 | | | recovery | | + +---+ | | | + +---+ | PHENYLEPHrine 100 mcg/mL IV | | | syringe 50 mcg, intravenous, | | | POSTPROCEDURE PRN, 4 doses, | | | Starting 01/22/19 at 1450, | | | Until 01/23/19 at 0252, | | | systolic blood [...]
--- OUTSIDE RECORDS SUMMARY | ~2019-01-28 | XMS | Encounter Summary ---
Demographics + + + | Address | [address] | | | [place] [address] | + + + | Home Phone [...] Team Providers + +------+ + | Care Hospitality Specialist Name | Role | Phone | [...] [facility] [address] | [place], | | | | | [address] | [place] [address] | | | | | Mailcode: PV01 | [phone] | | | | | [facility] | | | | | | [place], [place] | | | | | | [address] | | | | | | [phone] | | | +--------+ + + + [...] | | | | | [place], | | | | | | [place] [address] | | | | | | [phone] | | | | | | | | +--------+---------+ + + + documented as of this encounter Visit Diagnoses Not on filedocumented in this encounter"
--- OUTSIDE RECORDS SUMMARY | ~2019-01-28 | XMS | Encounter Summary ---
Demographics + + + | Address | [address] | | | [place] [address] | + + + | Home Phone | | + + + | Preferred Language | Unknown | + + + | Marital Status | Single | + + + | Amish Affiliation | PAG | + + + | Race | White | + + + | Ethnic Group | Not or | + + + Author + + + | Author | [facility] | + + + | Organization | [facility] | + + + | Address | Unknown | + + + | Phone | Unavailable | + + + Support + + +---------+ + | Name | Relationship | Address | Phone | + + +---------+ + | Yumiko Peralta | ECON | Unknown | | + + +---------+ + Care Team Providers + +------+ + | Care Process Design Engineer Name | Role | Phone | + [...] + + | 01/22/ | Surgery | [facility] IN[facility] | Malik Daigle MD | LEFT EAR CARTILAGE | | 2019 | | [facility] | [address] | GRAFT, | | | | and Healing Surgery | [place], | TYMPANOPLASTY, | | | | Center Admitting | [place] [address] | MASTOID ANTROTOMY | | | | Desk Located on the | [phone] | WITH OSSICULAR CHAIN | | | | 4th floor [address] | | RECONSTRUCTION, | | | | [address] [place], | | [place]. | | | | [place] [address] | | | +--------+---------+ + + + [...] appointment. You may call our office at [phone] (daytimes) or [phone] (after hours; urgent jenny ls only) with [...] - Head and Neck Surgery (ENT) resident injection molding machine setter. Malik Daigle MD Event Sales Representative, Division of Otology, Neurotology, and Skull Base Surgery [email or web address] Additional Instructions Eugenie Nathan RN - 01/22/2019General [...] a patient satisfacti on survey from "Sukumar FlipGivekaleb". We would appreciate your feedback on the [...] | | | | | [place], | | | | | | [place] [address] | | | | | | [phone] | | | | | | | [...]
--- OUTSIDE RECORDS SUMMARY | ~2019-01-28 | XMS | Encounter Summary ---
Demographics + + + | Address | [address] | | | [place] [address] | + + + | Home Phone | | + + + | Preferred Language | Unknown | + + + | Marital Status | Single | + + + | Adventism Affiliation | PAG | + + + | Race | White | + + + | Ethnic Group | Not or | + + + Author + + + | Author | [facility] | + + + | Organization | [facility] | + + + | Address | Unknown | + + + | Phone | Unavailable | + + + Support + + +---------+ + | Name | Relationship | Address | Phone | + + +---------+ + | Yumiko Peralta | ECON | Unknown | | + + +---------+ + Care Team Providers + +------+ + | Care Judge'S Clerk Name | Role | Phone | + +------+ + | Delilah Lange NP | PCP | | + +------+ + Encounter Details +--------+ + + + + | Date | Type | Department | Care Team | Description | +--------+ + + + + | 01/22/ | Pharmacy | [facility] | | | | 2019 | Visit | & [facility] | | | | | | [address] | | | | | | Mailcode: [place] | | | | | | [facility] | | | | | | Healing, [address] | | | | | | [place], [place] | | | | | | [address] | | | | | | [phone] | | | +--------+ + + + [...] | | | | | [place], | | | | | | [place] [address] | | | | | | [phone] | | | | | | | | +--------+---------+ + + + documented as of this encounter Visit Diagnoses Not on filedocumented in this encounter"
--- OUTSIDE RECORDS SUMMARY | ~2019-01-28 | XMS | Encounter Summary ---
Demographics + + + | Address | [address] | | | [place] [address] | + + + | Home Phone | | + + + | Preferred Language | Unknown | + + + | Marital Status | Single | + + + | Anabaptism Affiliation | PAG | + + + | Race | White | + + + | Ethnic Group | Not or | + + + Author + + + | Author | [facility] | + + + | Organization | [facility] | + + + | Address | Unknown | + + + | Phone | Unavailable | + + + Support + + +---------+ + | Name | Relationship | Address | Phone | + + +---------+ + | Yumiko Peralta | ECON | Unknown | | + + +---------+ + Care Team Providers + +------+ + | Care Hard Tile Setter Name | Role | Phone | + [...] [facility] [address] | [place], | | | | | [address] | [place] [address] | | | | | Mailcode: PV01 | [phone] | | | | | Phys[facility] | | | | | | [place], [place] | | | | | | [address] | | | | | | [phone] | | | +--------+ + + + [...] | | | | | [place], | | | | | | [place] [address] | | | | | | [phone] | | | | | | | | +--------+---------+ + + + documented as of this encounter Visit Diagnoses Not on filedocumented in this encounter"
--- OUTSIDE RECORDS SUMMARY | ~2019-01-28 | XMS | Encounter Summary ---
Demographics + + + | Address | [address] | | | [place] [address] | + + + | Home Phone [...] + + + | Author | [facility] | + + + | Organization | [facility] | + + + | Address | Unknown | + + + | Phone | Unavailable | + + + Support + + +---------+ + | Name | Relationship | Address | Phone | + + +---------+ + | Yumiko Peralta | ECON | Unknown | | + + +---------+ + Care Team Providers + +------+ + | Care Adolescent Medicine Specialist Name | Role | Phone | [...] | | | 2019 | Event | [facility] | [address] | | | | | and Healing Surgery | [place], | | | | | [facility] | [place] [address] | | | | | Desk Located on the | [phone] | | | | | 4th floor [address] | | | | | | [address] [place], | [place], | | | | | [place] [address] | SCREENER OPERATOR [address] | | | | | | [address] | | | | | | [place], [place] | | | | | | [address] | | | | | | [phone] | | | | | | | | +--------+ + + + + Anesthesia Record + + + + + | Procedure Name | Responsible | Anesthesia Start | Anesthesia Stop Time | | | Anesthesiologist | Time | | + + + + + | LEFT EAR CARTILAGE | Solomon Walker MD | 01/22/19 7438 | 01/22/19 6496 | | GRAFT, | | | | [...] | | Oral; Cuffed; 01/22/19; 1741 | SCREENER OPERATOR | | +--------+ + + + [...] | | | | | | [place], | | | | | | [place] [address] | | | | | | [phone] | | | | | | | [...]
--- OUTSIDE RECORDS SUMMARY | ~2019-01-28 | XMS | Encounter Summary ---
Demographics + + + | Address | [address] | | | [place] [address] | + + + | Home Phone [...] Author + + + | Author | [facility] | + + + | Organization | [facility] | + + + | Address | Unknown | + + + | Phone | Unavailable | + + + Support + + +---------+ + | Name | Relationship | Address | Phone | + + +---------+ + | Yumiko Peralta | ECON | Unknown | | + + +---------+ + Care Team Providers + +------+ + | Care Web Pressman Name | Role | Phone | + [...] + + | 01/22/ | Hospital | [facility] | Malik Daigle MD | | | 2019 | Encounter | [facility] [address] | [address] | | | | | [place] Mailcode: [facility] | [place], | | | | | [facility] | [place] [address] | | | | | Health and Healing, | [phone] | | | | | [place] [address] | | | | | | [place], [place] | | | | | | [address] | | | | | | [phone] | | | +--------+ + + + [...] appointment. You may call our office at [phone] (daytimes) or [phone] (after hours; urgent jenny ls only) with [...] - Head and Neck Surgery (ENT) resident brand ambassadors promotional sales. Malik Daigle MD Oceanology Teacher, Division of Otology, Neurotology, and Skull Base Surgery [email or web address] Additional Instructions Eugenie Nathan RN - 01/22/2019General Discharge Instructions for [facility]-Day Procedure Patients: ? Remember that you are [...] a patient satisfacti on survey from [employer]". We would appreciate your feedback on the [...] 02/20/ | Office | Otolaryngology | Malik Diagle MD | | | 2019 | Visit | | [address] | | | | | | [place], | | | | | | [place] [address] | | | | | | [phone] | | | | | | | [...]
--- OUTSIDE RECORDS SUMMARY | ~2019-01-28 | XMS | Clinical Summary ---
Demographics + + + | Address | [address] | | | [place] [address] | + + + | Home Phone | | + + + | Preferred Language | Unknown | + + + | Marital Status | Single | + + + | Restorationism Affiliation | 1037 | + + + | Race | Unknown | + + + | Ethnic Group | Unknown | + + + Author + + + | Author | [facility] | | | and [place] | + + + | Organization | [facility] | | | and [place] | + + + | Address | Unknown | + + + | Phone | Unavailable | + + + Support + + +---------+ + | Name | Relationship | Address | Phone | + + +---------+ + | Denise Ramos | ECON | Unknown | | + + +---------+ + Care Team Providers + +------+ + | Care Paper Rewinder Operator Name | Role | Phone | + +------+ + | Mai Serrano | PCP | | | PA | | | + +------+ + Allergies No Known Allergies Medications + + + +---------+------+------+-------+ | Medication | Sig | Dispensed | Refills | Star | End | Statu | | | | | | t | Date | s | | | | | | Date | | | + + + +---------+------+------+-------+ | | Take 1-2 tablets by | 25 | 0 | 11/0 | | Activ | | HYDROcodone-acetamin | mouth every 4 hours | tablet | | 8/20 | | e | | ophen (NORCO) 5-325 | as needed for Pain. | | | 16 | | | | mg per tablet | | | | | | | + + + +---------+------+------+-------+ Active Problems + + + | Problem | Noted Date | + + + | Mastoiditis, chronic, left | 02/09/2016 | + + + | Eustachian tube disorder, bilateral | 02/09/2016 | + + + | Hypertrophy of adenoids alone | 02/09/2016 | + + + Social History + +-------+ +--------+------+ | Tobacco Use | Types | Packs/Day | Years | Date | | | | | Used | | + +-------+ +--------+------+ | Never Smoker | | | | | + [...] Filed Vital Signs + + + + | Vital Sign | Reading | Time Taken | + + + + | Blood Pressure | 137/71 | 02/09/2016 1600 PST | + + + + | Pulse | 72 | 02/17/2016 1132 PST | + + + + | Temperature | 36.5 C (97.7 F) | 02/09/2016 1440 PST | + + + + | Respiratory Rate | 16 | 02/17/20161131 PST | + + + + | Oxygen Saturation | 97% | 02/17/20161131 PST | + + + + | Inhaled Oxygen | - | - | | Concentration | | | + + + + | Weight | 96.2 kg (212 lb) | 02/17/20161131 PST | + + + + | Height | 160 cm (5' 3") | 02/17/20161131 PST | + + + + | Body Mass Index | 37.55 | 02/17/20161131 PST | + + + + Plan of Treatment + + + + + | Health Maintenance | Due Date | Last Done | Comments | + + + + + | Vaccine: HPV (1 - | | | | | Female 3-dose | 2 | | | | series) | | | | + + + + + | Vaccine: | | | | | Dtap/Tdap/Td (1 - | 6 | | | | Tdap) | | | | + + + + + | Cervical Cancer | | | | | Screening (Pap) | 8 | | | + + + + + | Vaccine: Influenza | | | | | (#1) | 9 | | | + + + + + Implants + +--------+--------+ +--------+--------+--------+ | Implanted | Type | Area | Manufacture | Device | Shelf | Model | | | | | r | | Expira | / | | | | | | Identi | tion | Serial | | | | | | fier | Date | / Lot | + +--------+--------+ +--------+--------+--------+ | Tube Spoon-Bobbin Vevt W/ | Generi | | OLYMPUS | | 04/08/ | [id number] | | Wire - [id number]: | c | | [employer] | | 2024 | 24 / | | Qty: 1 on 02/09/2016 by | | | - OLYP | | | /[id number] | | Jack Vance MD | | | | | | 628 | + +--------+--------+ +--------+--------+--------+ | Tube Spoon-Bobbin Vevt W/ | Generi | Left: | OLYMPUS | | 06/17/ | [id number] | | Wire - [id number]: | c | Mastoi | [employer] | | 2025 | 24 / | | Qty: 1 on 02/09/2016 by | | d | - OLYP | | | /[id number] | | Jack Vance MD | | | | | | 145 | + +--------+--------+ +--------+--------+--------+ Results Not on filefrom Last 3 Months Insurance + +--------+ +--------+ +---------+--------+ | Payer | Benefi | Subscriber | Effect | Phone | Address | Type | | | t Plan | ID | aquiles | | | | | | / | | Dates | | | | | | Group | | | | | | + +--------+ +--------+ +---------+--------+ | [employer] | MODA | [id number] | | [phone] | | Medica | | MEDICAID HMO | HEALTH | | 016-Pr | 1 | | id | | | MDCD | | esent | | | | | | [place] | | | | | | + +--------+ +--------+ +---------+--------+ + +--------+ +--------+ + + | Guarantor Name | Accoun | Relation to | Date | Phone | Billing Address | | | t Type | Patient | of | | | | | | | | | | + +--------+ +--------+ + + | Patricia Can | Person | Self | [birth year] | [address] | | Nadiya | al/Fam | | 1996 | [phone] | [place] [address] | | | alycia | | | 4 (Home) | | + +--------+ +--------+ + + Advance Directives Patient has advance care planning documents, and code status on file. For more information, please contact:[facility] [address] + + + + + | Code Status | Date | Date | Comments | | | Activated | Inactivated | | + + + + + | Full Code | 02/09/2016 | 02/09/2016 | | | | 14:38 | 19:44 | | + + + + +
--- OUTSIDE RECORDS SUMMARY | ~2019-01-28 | XMS | Encounter Summary ---
Demographics + + + | Address | [address] | | | [place] [address] | + + + | Home Phone | | + + + | Preferred Language | Unknown | + + + | Marital Status | Single | + + + | Mormonism Affiliation | PAG | + + + [...] Team Providers + +------+ + | Care Logistics Officer Name | Role | Phone | [...] | | | | | [place], | | | | | | [place] [address] | | | | | | [phone] | | | | | | | | +--------+---------+ + + + documented as of this encounter Visit Diagnoses Not on filedocumented in this encounter"
--- OUTSIDE RECORDS SUMMARY | ~2019-01-28 | XMS | Encounter Summary ---
Demographics + + + | Address | [address] | | | [place] [address] | + + + | Home Phone [...] Author + + + | Author | [facility] | + + + | Organization | [facility] | + + + | Address | Unknown | + + + | Phone | Unavailable | + + + Support + + +---------+ + | Name | Relationship | Address | Phone | + + +---------+ + | Yumiko Peralta | ECON | Unknown | | + + +---------+ + Care Team Providers + +------+ + | Care Service Superintendent Name | Role | Phone | + +------+ + | Delilah Lange NP | PCP | | + +------+ + Encounter Details +--------+ + + + + | Date | Type | Department | Care Team | Description | +--------+ + + + + | 01/25/ | MyChart | Otolaryngology | Malik Daigle MD | RE: doctors note | | 2019 | Encounter | Otology Services at | [address] | | | | | [facility] [address] | [place], | | | | | [address] | [place] [address] | | | | | Mailcode: PV01 | [phone] | | | | | [facility] | | | | | | [place], [place] | | | | | | [address] | | | | | | [phone] | | | +--------+ + + + [...] | | | | | [place], | | | | | | [place] [address] | | | | | | [phone] | | | | | | | | +--------+---------+ + + + documented as of this encounter Visit Diagnoses Not on filedocumented in this encounter"
--- OUTSIDE RECORDS SUMMARY | ~2019-01-28 | XMS | Encounter Summary ---
Demographics + + + | Address | [address] | | | [place] [address] | + + + | Home Phone | | + + + | Preferred Language | Unknown | + + + | Marital Status | Single | + + + | Catholic Affiliation | PAG | + + + | Race | White | + + + | Ethnic Group | Not or | + + + Author + + + | Author | [facility] | + + + | Organization | [facility] | + + + | Address | Unknown | + + + | Phone | Unavailable | + + + Support + + +---------+ + | Name | Relationship | Address | Phone | + + +---------+ + | Yumiko Peralta | ECON | Unknown | | + + +---------+ + Care Team Providers + +------+ + | Care Stitcher Feeder Name | Role | Phone | + [...] [facility] [address] | [place], | | | | | [address] | [place] [address] | | | | | Mailcode: PV01 | [phone] | | | | | [facility] | | | | | | [place], [place] | | | | | | [address] | | | | | | [phone] | | | +--------+ + + + [...] | | | | | [place], | | | | | | [place] [address] | | | | | | [phone] | | | | | | | | +--------+---------+ + + + documented as of this encounter Visit Diagnoses Not on filedocumented in this encounter"
--- OUTSIDE RECORDS SUMMARY | ~2019-01-28 | XMS | Encounter Summary ---
Demographics + + + | Address | [address] | | | [place] [address] | + + + | Home Phone | | + + + | Preferred Language | Unknown | + + + | Marital Status | Single | + + + | Jain Affiliation | PAG | + + + | Race | White | + + + | Ethnic Group | Not or | + + + Author + + + | Author | [facility] | + + + | Organization | [facility] | + + + | Address | Unknown | + + + | Phone | Unavailable | + + + Support + + +---------+ + | Name | Relationship | Address | Phone | + + +---------+ + | Yumiko Peralta | ECON | Unknown | | + + +---------+ + Care Team Providers + +------+ + | Care Sort Manager Name | Role | Phone | [...] evaluation | | 2019 | margie | [facility] at | | | | | | [facility] | | | | | | [address] | | | | | | Mail Code: OC8PM | | | | | | [facility] | | | | | | and Healing, | | | | | | [address] | | | | | | [place], [place] | | | | | | [address] | | | | | | [phone] | | | +--------+ + + + + Anesthesia Record + + + + + | Procedure Name | Responsible | Anesthesia Start | Anesthesia Stop Time | | | Anesthesiologist | Time | | + + + + + | LEFT EAR CARTILAGE | Solomon Walker MD | 01/22/19 7105 | 01/22/19 6988 | | GRAFT, | | | | [...] ROBERTH | | | Oral; Cuffed; 01/22/19; 385 | WATER PUMP OPERATOR | | +--------+ + + + [...] speed your surgery recovery. Surgery check-in location: [address] and [facility] 2, 1st Floor [facility] Surgery Check in Time: you will receive a call 1-3 business days before your surgery confi rming your exact arrival/check-in time for your surgery day. We know that planning for surg ashley can be stressful and involve a lot of family/friend/transportation coordination as well as hotel arrangements. [facility] does not have access to check in [facility], and we encourage you to contact your [...] ch as Uber/Lyft), or public transportation. An Uber/Lyft/spotter driver does not count as the responsible [...] it is after office hours, call the [facility] retarder operator at [phone] and ask them to page him or h er. documented in this encounter Plan of Treatment +--------+---------+ + + + | Date | Type | Specialty | Care Team | Description | +--------+---------+ + + + | 02/20/ | Office | Otolaryngology | Malik Daigle MD | | | 2019 | Visit | | [address] | | | | | | [place], | | | | | | [place] [address] | | | | | | [phone] | | | | | | | | +--------+---------+ + + + documented as of this encounter Visit Diagnoses Not on filedocumented in this encounter
--- OUTSIDE RECORDS SUMMARY | ~2019-01-28 | XMS | Encounter Summary ---
Demographics + + + | Address | [address] | | | [place] [address] | + + + | Home Phone | | + + + | Preferred Language | Unknown | + + + | Marital Status | Single | + + + | Restorationist Affiliation | PAG | + + + | Race | White | + + + | Ethnic Group | Not or | + + + Author + + + | Author | [facility] | + + + | Organization | [facility] | + + + | Address | Unknown | + + + | Phone | Unavailable | + + + Support + + +---------+ + | Name | Relationship | Address | Phone | + + +---------+ + | Yumiko Peralta | ECON | Unknown | | + + +---------+ + Care Team Providers + +------+ + | Care Sinter Machine Operator Name | Role | Phone | [...] [facility] [address] | [place], | | | | | [address] | [place] [address] | | | | | Mailcode: PV01 | [phone] | | | | | [facility] | | | | | | [place], [place] | | | | | | [address] | | | | | | [phone] | | | +--------+ + + + [...] | | | | | [place], | | | | | | [place] [address] | | | | | | [phone] | | | | | | | | +--------+---------+ + + + documented as of this encounter Visit Diagnoses Not on filedocumented in this encounter"
--- OUTSIDE RECORDS SUMMARY | ~2019-01-28 | XMS | Encounter Summary ---
Demographics + + + | Address | [address] | | | [place] [address] | + + + | Home Phone | | + + + | Preferred Language | Unknown | + + + | Marital Status | Single | + + + | Christianity Affiliation | PAG | + + + | Race | White | + + + | Ethnic Group | Not or | + + + Author + + + | Author | [facility] | + + + | Organization | [facility] | + + + | Address | Unknown | + + + | Phone | Unavailable | + + + Support + + +---------+ + | Name | Relationship | Address | Phone | + + +---------+ + | Yumiko Peralta | ECON | Unknown | | + + +---------+ + Care Team Providers + +------+ + | Care Charge Account Clerk Name | Role | Phone | [...] [facility] [address] | [place], | | | | | [address] | [place] [address] | | | | | Mailcode: PV01 | [phone] | | | | | [facility] | | | | | | [place], [place] | | | | | | [address] | | | | | | [phone] | | | +--------+ + + + [...] | | | | | [place], | | | | | | [place] [address] | | | | | | [phone] | | | | | | | | +--------+---------+ + + + documented as of this encounter Visit Diagnoses Not on filedocumented in this encounter"
--- OUTSIDE RECORDS SUMMARY | ~2019-01-28 | XMS | Clinical Summary ---
Demographics + + + | Address | [address] | | | [place] [address] | + + + | Home Phone | | + + + | Preferred Language | Unknown | + + + | Marital Status | Single | + + + | Taoist Affiliation | 1037 | + + + | Race | Unknown | + + + | Ethnic Group | Unknown | + + + Author + + + | Author | [facility] | | | and [place] | + + + | Organization | [facility] | | | and [place] | [...] Team Providers + +------+ + | Care Urogynecology Physician Name | Role | Phone | + [...] | | OLYMPUS | | 04/08/ | [id number] | | Wire - [id number]: | c | | [employer] | | 2024 | 24 / | | Qty: 1 on 02/09/2016 by | | | - OLYP | | | [id number] | | Jack Vance MD | | | | | | 628 | + +--------+--------+ +--------+--------+--------+ | Tube Spoon-Bobbin Vevt W/ | Generi | Left: | OLYMPUS | | 06/17/ | [id number] | | Wire - [id number]: | c | Mastoi | [employer] [...] | [employer] | [employer] | [id number] | | [phone] | | Medica | [...] | 1996 | [phone] | [place] [address] | | | alycia | | | 4 (Home) | | + +--------+ +--------+ + + Advance Directives Patient has advance care planning documents, and code status on file. For more information, please contact:[facility] [address] + + + + + | Code Status | Date | Date | Comments | | | Activated | Inactivated | | + + + + + | Full Code | 02/09/2016 | 02/09/2016 | | | | 14:38 | 19:44 | | + + + + +
--- OUTSIDE RECORDS SUMMARY | ~2019-01-28 | XMS | Encounter Summary ---
Demographics + + + | Address | [address] | | | [place] [address] | + + + | Home Phone [...] Author + + + | Author | [facility] | + + + | Organization | [facility] | + + + | Address | Unknown | + + + | Phone | Unavailable | + + + Support + + +---------+ + | Name | Relationship | Address | Phone | + + +---------+ + | Yumiko Peralta | ECON | Unknown | | + + +---------+ + Care Team Providers + +------+ + | Care Payroll Services Analyst Name | Role | Phone | + [...] [facility] [address] | [place], | | | | | [address] | [place] [address] | | | | | Mailcode: PV01 | [phone] | | | | | [facility] | | | | | | [place], [place] | | | | | | [address] | | | | | | [phone] | | | +--------+ + + + [...] | | | | | [place], | | | | | | [place] [address] | | | | | | [phone] | | | | | | | | +--------+---------+ + + + documented as of this encounter Visit Diagnoses Not on filedocumented in this encounter"
[~2019-01-28 17:18] MED LIST changes: +DOXYCYCLINE HY100 MG PO; +EXCEDRIN MIGRA1 EAC2 PO
--- OUTSIDE RECORDS SUMMARY | 2019-01-28 17:20 | XMS ---
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 Amber VISIT COUNT (12 MO.) 4 [facility] TOTAL 4 NOTE: Visits indicate total known visits. ED/UCC VISIT TRACKING (12 MO.) 01/28/2019 17:19 [facility] [place] TYPE: Emergency COMPLAINT: - PRESCRIPTION REFILL 09/30/2018 05:37 [facility] [place] TYPE: Emergency COMPLAINT: - BUG BITE DIAGNOSES: - Cellulitis of right lower limb - Nicotine dependence, unspecified, uncomplicated 09/26/2018 21:42 [facility] [place] TYPE: Emergency COMPLAINT: - SPIDER BITE DIAGNOSES: - Cellulitis of right lower limb 05/16/2018 11:05 [facility] [place] TYPE: Emergency COMPLAINT: - R EAR BLEEDING DIAGNOSES: - Proc/trtmt not crd out d/t pt lv bef seen by [facility] care prov INPATIENT VISIT TRACKING (12 MO.) No inpatient visits to display in this time frame [id number]
[2019-01-28] MEDS ORDERED: OXYCODONE HCL5 MG PO (17:32)
[2019-01-28] MEDS ORDERED: PAIN RELIEF325 MG PO (17:33)
== END 2019-01-28 20:20 | disposition home or self-care (01) ==
LOC: ED 17:18
DX: H92.02 Otalgia, left ear (principal); Z76.0 Encounter for issue of repeat prescription; F17.200 Nicotine dependence, unspecified, uncomplicated
CPT/HCPCS: 99282; 99406

== ENCOUNTER 2019-05-18 13:35 | Emergency (ER) | payer OTHER ==
[~2019-05-18] VITALS: Ht 160 cm; Wt 102.2 kg
[~2019-05-18 13:35] MED LIST changes: +OXYCODONE HCL5 MG PO; +PAIN RELIEF325 MG PO
--- OUTSIDE RECORDS SUMMARY | 2019-05-18 13:38 | XMS ---
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 Care History Medical/Surgical 01/29/2019 [facility] Patient has scheduled \T\lsquo;PostOp Check appt with Delilah Galan 01/31/2019 @ 4:00pm. 01/29/2019 [facility] - Patient is currently established with [facility]. If patient is seen in the ED during business hours. Please contact CHWs at [facility]. Care Recommendation: This patient has had 5 or more Emergency Department visits in the last 12 months.\T\nbsp; Patient requires education on the scope and purpose of the ED as an acute care provider not a Primary Care Provider and should not be utilized for chronic conditions.\T\nbsp; These are guidelines and the provider should exercise clinical judgment when providing care. E.D. VISIT COUNT (12 MO.) 4 SUDARSHAN Bowen TOTAL 4 NOTE: Visits indicate total known visits. ED/UCC VISIT TRACKING (12 MO.) 05/18/2019 13:36 [facility] [place] TYPE: Emergency COMPLAINT: - LACERATION 01/28/2019 17:19 [facility] [place] TYPE: Emergency COMPLAINT: - PRESCRIPTION REFILL DIAGNOSES: - Otalgia, left ear - Nicotine dependence, unspecified, uncomplicated - Encounter for issue of repeat prescription 09/30/2018 05:37 [facility] [place] TYPE: Emergency COMPLAINT: - BUG BITE DIAGNOSES: - Cellulitis of right lower limb - Nicotine dependence, unspecified, uncomplicated 09/26/2018 21:42 [facility] [place] TYPE: Emergency COMPLAINT: - SPIDER BITE DIAGNOSES: - Cellulitis of right lower limb INPATIENT VISIT TRACKING (12 MO.) No inpatient visits to display in this time frame [email or web address]
== END 2019-05-18 14:33 | disposition home or self-care (01) ==
LOC: ED 13:35
DX: S41.012A Laceration without foreign body of left shoulder, initial encounter (principal); S41.011A Laceration without foreign body of right shoulder, initial encounter; F17.200 Nicotine dependence, unspecified, uncomplicated; X58.XXXA Exposure to other specified factors, initial encounter
CPT/HCPCS: 12034; 99282-25

== ENCOUNTER 2021-05-08 08:07 | Emergency (ER) | payer OTHER ==
[~2021-05-08] VITALS: Ht 160 cm; Wt 92.7 kg
--- OUTSIDE RECORDS SUMMARY | 2021-05-08 08:14 | XMS ---
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 Care History Medical/Surgical 01/29/2019 [facility] Patient has scheduled \T\lsquo;PostOp Check appt with Delilah Galan 01/31/2019 @ 4:00pm. 01/29/2019 [facility] - Patient is currently established with [facility]. If patient is seen in the ED during business hours. Please contact CHWs at [facility]. Care Recommendation: This patient has had 5 or more Emergency Department visits in the last 12 months.\T\nbsp; Patient requires education on the scope and purpose of the ED as an acute care provider not a Primary Care Provider and should not be utilized for chronic conditions.\T\nbsp; These are guidelines and the provider should exercise clinical judgment when providing care. EConnie VISIT COUNT (12 MO.) 1 SUDARSHAN Bowen TOTAL 1 NOTE: Visits indicate total known visits. ED/UCC VISIT TRACKING (12 MO.) 05/08/2021 08:07 SUD[facility] [place] TYPE: Emergency COMPLAINT: - RT HAND INJURY INPATIENT VISIT TRACKING (12 MO.) No inpatient visits to display in this time frame [email or web address]
[2021-05-08] MEDS ORDERED: HYDROCODON-ACE1 EA11 PO (08:47)
== END 2021-05-08 10:05 | disposition home or self-care (01) ==
LOC: ED 08:07
DX: S62.340A Nondisplaced fracture of base of second metacarpal bone, right hand, initial encounter for closed fracture (principal); S62.342A Nondisplaced fracture of base of third metacarpal bone, right hand, initial encounter for closed fracture; F17.200 Nicotine dependence, unspecified, uncomplicated; W22.8XXA Striking against or struck by other objects, initial encounter
CPT/HCPCS: 29125; 73130; 99283-25; A9270

== ENCOUNTER 2022-12-17 23:50 | Emergency (ER) | payer OTHER ==
[~2022-12-17] VITALS: Ht 160 cm; Wt 92.5 kg
[~2022-12-17 23:50] MED LIST changes: +HYDROCODON-ACE1 EA11 PO
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
[2022-12-18 00:46] LABS: BILIRUBIN, URINE NEGATIVE (negative); BLOOD/HGB, URINE NEGATIVE (Negative); KETONE, URINE NEGATIVE (Negative); LEUK ESTERASE, URINE NEGATIVE (negative); NITRITE, URINE NEGATIVE (negative)
[2022-12-18 00:47] LABS: AMPHETAMINES, UR NEGATIVE (NEGATIVE); BARBITURATES, UR NEGATIVE (NEGATIVE); BENZODIAZEPINES, UR NEGATIVE (NEGATIVE); BUPRENORPHINE,UR NEGATIVE (NEGATIVE); COCAINE, UR NEGATIVE (NEGATIVE); MARIJUANA (THC), UR NEGATIVE (NEGATIVE); MDMA, UR NEGATIVE (NEGATIVE); METHADONE, UR NEGATIVE (NEGATIVE); METHAMPHETAMINE, UR NEGATIVE (NEGATIVE); OPIATES, UR NEGATIVE (NEGATIVE); OXYCODONE, UR NEGATIVE (NEGATIVE); PHENCYCLIDINE, UR NEGATIVE (NEGATIVE); TRICYCLIC ANTIDEPRESSANT, UR NEGATIVE (NEGATIVE)
[2022-12-18 00:50] LABS: BASOPHILS 0.3 % (0-2); EOSINOPHILS 0.5 % (0-6); HEMATOCRIT 41.1 % (35.0-50.0); LYMPHOCYTES 22.1 % (24-44); MCH 34.6 (27-36); MCHC 34.1 g/dl (30-36); MCV 101.3 fl (81-99); NEUTROPHILS 71.1 % (39-80); PLATELET COUNT 301 K/uL (140-440); RBC 4.06 M/ul (4.3-5.7); RDW 12.7 (10.5-15.0)
[2022-12-18 01:14] LABS: ALBUMIN 4.5 g/dL (3.4-5.0); ALBUMIN/GLOBULIN RATIO 1.32 (1.1-2.4); BILIRUBIN, TOTAL 0.4 ng/dL (0.2-1.0); BUN/CREATININE RATIO 21.97 (6.0-28.6); CALCIUM 9.6 mg/dL (8.5-10.1); CREATININE, SERUM 0.91 mg/dL (0.55-1.02); PROTEIN, TOTAL 7.9 g/dL (6.4-8.2); TSH, 3RD GENERATION 1.429 uIU/mL (0.358-3.740)
[2022-12-18 06:01] VITALS: BP 147/92
== END 2022-12-18 01:50 | disposition other institution, planned readmission (95) ==
LOC: ED 23:50
PROVIDERS: Emergency Medicine
DX: S60.812A Abrasion of left wrist, initial encounter (principal); D72.829 Elevated white blood cell count, unspecified; E87.6 Hypokalemia; F17.200 Nicotine dependence, unspecified, uncomplicated; Z53.29 Procedure and treatment not carried out because of patient's decision for other reasons; X83.8XXA Intentional self-harm by other specified means, initial encounter
CPT/HCPCS: 36415; 80053; 81003; 84443; 84703; 85025; 99284; G0480

== ENCOUNTER 2023-01-12 09:30 | Emergency (ER) | payer OTHER ==
[~2023-01-12] VITALS: Ht 160 cm; Wt 92.5 kg
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
[2023-01-12 11:59] VITALS: BP 149/101
== END 2023-01-12 12:00 | disposition home or self-care (01) ==
LOC: ED 09:30
DX: S13.9XXA Sprain of joints and ligaments of unspecified parts of neck, initial encounter (principal); S23.3XXA Sprain of ligaments of thoracic spine, initial encounter; Y04.0XXA Assault by unarmed brawl or fight, initial encounter; F17.200 Nicotine dependence, unspecified, uncomplicated
CPT/HCPCS: 71046; 72125; 73130; 96372; 99284-25; A9270; J1170